=== PATIENT | female | born 1925 | race Caucasian/White ===

== ENCOUNTER 2016-04-08 14:54 | Emergency (ER) | payer MEDICARE ==
[~2016-04-08] VITALS: Ht 157.5 cm; Wt 50.0 kg
[~2016-04-08 14:54] MED LIST: BUME0.5T PO; COLA100C3 PO; COMMODE 3-IN-11 MIS; COUM6TAB PO; EVIS60TA PO; FAMO20TA2 PO; HYDR-3516 PO; IPRASOL NEB; LACT10SO PO; LACTCHW3 CHEW; LEVO50TA4 PO; METO25TA3 PO; MILKSUS PO; MORP1TAB24 PO; ONDA4TAB7 PO; POLY17S PO; PRED1 PO; RANI150T PO; SPIRCAP INH; ULTR50TA5 PO
[2016-04-08 15:10] VITALS: BP 138/66; PULSE 66; RESP 18; TEMP 98.8; O2SAT 93
[2016-04-08 15:20] VITALS: BP 138/66; PULSE 79; RESP 18; TEMP 98.8; O2SAT 94; O2SAT 96
--- NOTE | 2016-04-08 15:24 | PD ---
HPI Chief Complaint: vomiting Time Seen by Provider: 15:19 Travel History International Travel<30 days: No Contact w/Intl Traveler<30days: No History of Present Illness HPI 89-year-old female presents to the emergency department for evaluation of vomiting. Patient was admitted on March 31, 2016 for intractable pain from rib fractures. She fell approximately 2 weeks and had ended up with posterior right rib fracture. She came in for intractable pain and was admitted. Patient still reports pain, states she started vomiting yesterday. She states she was able to keep this down, but has vomited 3 times today. Patient has a history of breast cancer, polymyalgia rheumatica, CHF, chronic kidney disease, atrial fibrillation, mitral valve prolapse, COPD, hypothyroidism, DVT. Patient states she had abdominal pain yesterday, but this has completely resolved. She does report constipation, that she had a bowel movement this morning. She denies any blood in her stool. Patient complains of right lower back pain from rib fracture, but denies any new pain. No fevers. PFSH Past Medical History Hx Anticoagulant Therapy: Yes Arthritis: Yes Asthma: No Atrial Fibrillation: Yes Autoimmune Disease: No Anxiety: No Depression: No Heart Rhythm Problems: Yes (Afib) Cancer: Yes (BREAST) Cardiovascular Problems: Yes (RI/ HTN; mitral valve prolapse; congenital heart disease) High Cholesterol: No Chemotherapy: No Chest Pain: Yes (intermittent) Congestive Heart Failure: Yes COPD: Yes Cerebrovascular Accident: No Diabetes: No Endocrine: Yes Gastrointestinal Disorders: Yes (ACID REFLUX) GERD: Yes Genitourinary: No Hepatitis: No Hiatal Hernia: No Hypertension: Yes Immune Disorder: Yes (POLYMYALGIA RHEUMATICA) Kidney Stones: Yes Musculoskeletal: Yes (ARTHRITIS) Neurologic: No Psychiatric: No Reproductive: Yes (hysterectomy) Respiratory: Yes (COPD) Immunizations Current: Yes Migraines: No Radiation Therapy: No Renal Failure: Yes (CRF) Seizures: No Sickle Cell Disease: No Sleep Apnea: No Thyroid Disease: Yes Ulcer: No PNEUMOCCOCAL Vaccine (Year): 1 : 6 Para: 5 Miscarriage: 1 Past Surgical History Abdominal Surgery: Yes (Exp Lap; recent hernia repair and colon resection) AICD: No Arteriovenous Shunt: No Cardiac Surgery: No Ear Surgery: No Endocrine Surgery: No Eye Surgery: Yes (bilateral cataracts) Genitourinary Surgery: Yes (BLADDER SLING; cystocele/Rectocele repair) Gynecologic Surgery: Yes (HYSTERECTOMY) Hysterectomy: Yes Insulin Pump: No Joint Replacement: No Mastectomy: Yes (RIGHT SIDE) Oral Surgery: No Pacemaker: No Thoracic Surgery: Yes (RIGHT MASTECTOMY) Other Surgery: Yes (CYSTOCELE, RECTOCELE) Social History Alcohol Use: Yes (WINE ONCE PER MONTH) Tobacco Use: No Substance Use: No Allergies-Medications (Allergen,Severity, Reaction): Coded Allergies: Codeine (Verified Allergy, Severe, UNK, 03/28/16) Penicillin (Verified Allergy, Severe, Unknown, 03/28/16) Sulfa (Verified Allergy, Severe, HYPOTENSION, 03/28/16) Shellfish (Unverified Allergy, Intermediate, NAUSEA VOMITING, 03/28/16) Uncoded Allergies: BANANAS (Allergy, Severe, VOMITTING, 10/30/15) Reported Meds & Prescriptions Reported Meds & Active Scripts Active Ondansetron Odt 4 Mg Tab 4 Mg SL Q6HR PRN Morphine ER (Morphine Sulfate) 15 Mg Tab 15 Mg PO Q12HR Coumadin (Warfarin) 6 Mg Tab 6 Mg PO DAILY@1600 Lactulose Liq (Lactulose) 10 Gm/15 Ml Soln 30 Ml PO DAILY PRN Hydrocodone-Acetaminophen 5-325 mg Tab 1 Tab PO Q4H PRN Milk of Magnesia Liq (Magnesium Hydroxide) 400 Mg/5 Ml Susp 30 Ml PO DAILY PRN 1 Days Ondansetron Odt 4 Mg Tab 4 Mg PO Q6H PRN 1 Days Duoneb (Ipratropium-Albuterol Neb) 0.5-2.5 Mg/3 Ml Neb 1 Ampule NEB Q4HR NEB PRN 1 Days Reported Miralax Powder (Polyethylene Glycol 3350 Powder) 17 Gm Powd 17 Gm PO HS Mix and dissolve one measuring cap-ful (17 grams) in water or juice. Diff-Stat (Probiotic Product) 1 Cap Cap 1 Cap PO DAILY Ranitidine (Ranitidine HCl) 150 Mg Tab 150 Mg PO DAILY Colace (Docusate Sodium) 100 Mg Cap 100 Mg PO BID Levothyroxine (Levothyroxine Sodium) 50 Mcg Tab 50 Mcg PO DAILY Spiriva Handihaler (Tiotropium Inh) 18 Mcg Cap 2 Puff INH DAILY 1 capsule = 18 mcg Evista (Raloxifene HCl) 60 Mg Tab 60 Mg PO DAILY Bumetanide 0.5 Mg Tab 0.5 Mg PO DAILY Metoprolol Tartrate 25 Mg Tab 25 Mg PO BID Prednisone 1 Mg Tab 3 Mg PO DAILY Review of Systems Except as stated in HPI: all other systems reviewed are Neg Physical Exam Narrative GENERAL: Well-developed well-nourished elderly female patient, afebrile. SKIN: Warm and dry. HEAD: Normocephalic. Atraumatic. EYES: No scleral icterus. No injection or drainage. NECK: Supple, trachea midline. No JVD or lymphadenopathy. CARDIOVASCULAR: Regular rate and rhythm without murmurs, gallops, or rubs. RESPIRATORY: Breath sounds equal bilaterally. No accessory muscle use. Lungs sounds clear to auscultation. GASTROINTESTINAL: Abdomen soft, non-tender, nondistended. No abdominal pain to palpation. MUSCULOSKELETAL: No cyanosis, or edema. BACK: Nontender without obvious deformity. No CVA tenderness. Patient has tenderness over the right thoracic back due to rib fractures. Data Data Last Documented VS Vital Signs Date Time Temp Pulse Resp B/P Pulse Ox O2 Delivery O2 Flow Rate FiO2 04/08/16 15:20 94 Nasal Cannula 2 04/08/16 15:20 98.8 79 18 138/66 Orders Complete Blood Count With Diff (04/08/16 15:17) Comprehensive Metabolic Panel (04/08/16 15:17) Urinalysis - C+S If Indicated (04/08/16 15:17) Lipase (04/08/16 15:17) Iv Access Insert/Monitor (04/08/16 15:17) Ecg Monitoring (04/08/16 15:17) Oximetry (04/08/16 15:17) Ondansetron Inj (Zofran Inj) (04/08/16 15:30) Sodium Chloride 0.9% Flush (Ns Flush) (04/08/16 15:30) Electrocardiogram (04/08/16 ) Ondansetron Odt (Zofran Odt) (04/08/16 16:45) Labs Laboratory Tests Test 04/08/16 04/08/16 15:28 16:40 White Blood Count 6.8 TH/MM3 Red Blood Count 4.31 MIL/MM3 Hemoglobin 13.6 GM/DL Hematocrit 40.6 % Mean Corpuscular Volume 94.3 FL Mean Corpuscular Hemoglobin 31.5 PG Mean Corpuscular Hemoglobin 33.4 % Concent Red Cell Distribution Width 15.8 % Platelet Count 253 TH/MM3 Mean Platelet Volume 7.8 FL Neutrophils (%) (Auto) 74.7 % Lymphocytes (%) (Auto) 10.2 % Monocytes (%) (Auto) 13.2 % Eosinophils (%) (Auto) 1.5 % Basophils (%) (Auto) 0.4 % Neutrophils # (Auto) 5.1 TH/MM3 Lymphocytes # (Auto) 0.7 TH/MM3 Monocytes # (Auto) 0.9 TH/MM3 Eosinophils # (Auto) 0.1 TH/MM3 Basophils # (Auto) 0.0 TH/MM3 CBC Comment DIFF FINAL Differential Comment Sodium Level 133 MEQ/L Potassium Level 4.5 MEQ/L Chloride Level 92 MEQ/L Carbon Dioxide Level 32.3 MEQ/L Anion Gap 9 MEQ/L Blood Urea Nitrogen 32 MG/DL Creatinine 1.66 MG/DL Estimat Glomerular Filtration 29 ML/MIN Rate Random Glucose 99 MG/DL Calcium Level 8.9 MG/DL Total Bilirubin 0.9 MG/DL Aspartate Amino Transf 27 U/L (AST/SGOT) Alanine Aminotransferase 19 U/L (ALT/SGPT) Alkaline Phosphatase 117 U/L Total Protein 7.5 GM/DL Albumin 3.6 GM/DL Lipase 124 U/L Urine Color YELLOW Urine Turbidity CLEAR Urine pH 7.0 Urine Specific [place] 1.010 Urine Protein NEG mg/dL Urine Glucose (UA) NEG mg/dL Urine Ketones NEG mg/dL Urine Occult Blood NEG Urine Nitrite NEG Urine Bilirubin NEG Urine Urobilinogen 2.0 MG/DL Urine Leukocyte Esterase NEG Urine RBC LESS THAN 1 /hpf Urine WBC LESS THAN 1 /hpf Urine Squamous Epithelial <1 /hpf Cells Microscopic Urinalysis Comment CULT NOT INDICATED MDM Medical Decision Making Medical Screen Exam Complete: Yes Emergency Medical Condition: Yes Medical Record Reviewed: Yes Differential Diagnosis Nausea/vomiting versus election abnormality versus gastroenteritis versus ACS versus dehydration versus acute kidney injury Narrative Course 89-year-old female presents to the emergency department via [employer] [facility] for evaluation of vomiting since yesterday. Patient was just discharged from the hospital on April 05. CBC, CMP, lipase, EKG are ordered and pending. Patient is given Zofran 4 mg IV. CBC shows no acute abnormalities. CMP shows slightly low sodium at 133, BUN and creatinine of 32/1.66. Lipase is 124. UA is negative for infection. EKG shows atrial fibrillation, heart rate 75, unchanged since previous EKG. My attending physician, Dr. Dupree, is aware of findings and plan. Patient is given PO challenge and is able to tolerate germán crackers and water without difficulty. The patient is stable to be discharged back to [facility] with a prescription for Zofran. I spoke to the family he was concerned about the care she is receiving a [facility]. They state they will follow up with her physician regarding this. The patient verbalizes understanding. They're to return for any acute worsening of symptoms. Diagnosis Primary Impression: Nausea & vomiting Qualified Code: R11.2 - Non-intractable vomiting with nausea, unspecified vomiting type Referrals: Primary Care Physician call for appointment Patient Instructions: Acute Nausea and Vomiting (ED), General Instructions Additional Instructions: [place] diet. Take ondansetron as directed as needed for nausea/vomiting. Take this before your pain medication to prevent vomiting. Follow-up with your primary care physician. Return to the emergency department for any acute worsening of symptoms. Med/Other Pt SpecificInfo: Prescription(s) given Scripts Ondansetron Odt 4 Mg Tab4 Mg SL Q6HR PRN (Nausea/Vomiting) #20 TAB Ref 0 Prov:Elizabeth Hart 04/08/16 Disposition: 01 DISCHARGE HOME Elizabeth Hart Apr 08, 2016 15:24
[2016-04-08] MEDS ORDERED: ONDANSETRON HCL 4 MG/2 ML VIAL IVP ONE (15:30)
[2016-04-08] MEDS ORDERED: SODIUM CHLORIDE 0.9% FLUSH 5 ML FLUSH IVF PRN (15:30)
[2016-04-08 15:47] LABS: AUTOMATED NEUTROPHIL # 5.1 TH/MM3 (1.8-7.7); BASOPHIL % 0.4 % (0.0-2.0); EOSINOPHIL # 0.1 TH/MM3 (0-0.4); EOSINOPHIL % 1.5 % (0.0-4.0); HEMATOCRIT 40.6 % (35.0-46.0); HEMO FLAGS DIFF FINAL; LYMPH % 10.2 % (9.0-44.0); LYMPHOCYTE # 0.7 TH/MM3 (1.0-4.8); MEAN CELL VOLUME 94.3 FL (80.0-100.0); MEAN CORPUSCULAR HEMOGLOBIN 31.5 PG (27.0-34.0); MEAN CORPUSCULAR HGB CONC 33.4 % (32.0-36.0); MONO % 13.2 % (0.0-8.0); NEUT % 74.7 % (16.0-70.0); PLATELET COUNT 253 TH/MM3 (150-450); RED BLOOD COUNT 4.31 MIL/MM3 (4.00-5.30); RED CELL DISTRIBUTION WIDTH 15.8 % (11.6-17.2); WHITE BLOOD COUNT 6.8 TH/MM3 (4.0-11.0)
[2016-04-08 16:09] LABS: ALT (GPT) 19 U/L (10-53); ANION GAP 9 MEQ/L (5-15); AST (GOT) 27 U/L (15-37); BICARBONATE 32.3 MEQ/L (21.0-32.0); BLOOD UREA NITROGEN 32 MG/DL (7-18); CHLORIDE 92 MEQ/L (98-107); GLOMERULAR FILTRATION RATE 29 ML/MIN (>89); POTASSIUM 4.5 MEQ/L (3.5-5.1); SODIUM (NA) 133 MEQ/L (136-145)
[2016-04-08 16:11] LABS: ALKALINE PHOSPHATASE 117 U/L (45-117); TOTAL BILIRUBIN ADULT 0.9 MG/DL (0.2-1.0)
[2016-04-08] MEDS ORDERED: MIRA33504 PO (16:37)
[2016-04-08] MEDS ORDERED: DIFFCHW PO (16:37)
[2016-04-08] MEDS ORDERED: ONDANSETRON ODT 4 MG TAB PO ONE (16:45)
[2016-04-08 17:14] LABS: BLOOD, URINE NEG (NEG); COMMENT (UR) CULT NOT INDICATED; CULTURE IF INDICATED CULT NOT INDICATED; GLUCOSE,URINE NEG (NEG); KETONE, URINE NEG (NEG); NITRITE,URINE NEG (NEG); SQUAMOUS EPITHELIAL CELL URINE <1 /hpf (0-5); URINE COLOR YELLOW (YELLW/STRAW)
[2016-04-08] MEDS ORDERED: ONDA4TAB7 SL (18:11)
[2016-04-08 18:53] VITALS: BP 104/58; PULSE 75; RESP 16; O2SAT 95
[2016-04-08 21:09] VITALS: BP 120/78
--- NOTE | 2016-04-09 23:58 | EKG ---
Date Performed: 04/08/2016 Time Performed: 15:35:40 PTAGE: 89 years EKG: ATRIAL FIBRILLATION MARKED LEFT AXIS DEVIATION ANTEROSEPTAL MYOCARDIAL INFARCTION ABNORMAL ECG PREVIOUS TRACING : 04/01/2016 22.20 DOCTOR: Ilda Patino Interpretating Date/Time 04/09/2016 23:49:58
[2016-05-07] MEDS ORDERED: VENTAER INH (15:05)
[2016-06-27] MEDS ORDERED: RALO1TAB PO (15:53)
[2016-06-27] MEDS ORDERED: ERGO1CAP30 PO (15:53)
[2016-06-27] MEDS ORDERED: COUM6TAB PO (15:53)
[2016-06-27] MEDS ORDERED: LEVO50TA4 PO (15:53)
[2016-06-27] MEDS ORDERED: BUME1TAB PO (15:53)
[2016-06-27] MEDS ORDERED: DOCU1CAP39 PO (15:53)
[2016-06-27] MEDS ORDERED: CYCL1TAB29 PO (15:53)
[2016-06-27] MEDS ORDERED: VITA2000 PO (15:53)
[2016-06-27] MEDS ORDERED: CALCTAB19 PO (15:53)
[2016-06-27] MEDS ORDERED: PRED1 PO (15:53)
[2016-06-27] MEDS ORDERED: SPIRCAP INH (15:53)
[2016-06-27] MEDS ORDERED: NORC5TAB PO (15:53)
[2016-06-27] MEDS ORDERED: METO25TA6 PO (15:53)
== END 2016-04-08 21:30 | disposition home or self-care (01) ==
LOC: NEPE 14:54
DX: R11.2 Nausea with vomiting, unspecified (principal); I48.91 Unspecified atrial fibrillation; M19.90 Unspecified osteoarthritis, unspecified site; J44.9 Chronic obstructive pulmonary disease, unspecified; I12.9 Hypertensive chronic kidney disease with stage 1 through stage 4 chronic kidney disease, or unspecified chronic kidney disease; E07.9 Disorder of thyroid, unspecified; I50.9 Heart failure, unspecified; K21.9 Gastro-esophageal reflux disease without esophagitis; Z79.01 Long term (current) use of anticoagulants
CPT/HCPCS: 80053; 81001; 83690; 85025; 93005

== ENCOUNTER → 2016-06-05 | Outpatient (CLI) | payer MEDICARE ==
[~2016-06-05] MED LIST changes: +BUME1TAB PO; +CALCTAB19 PO; -COMMODE 3-IN-11 MIS; +CYCL1TAB29 PO; +DIFFCHW PO; +DOCU1CAP39 PO; +ERGO1CAP30 PO; -FAMO20TA2 PO; -HYDR-3516 PO; -LACTCHW3 CHEW; +METO25TA6 PO; +MIRA33504 PO; -MORP1TAB24 PO; +NORC5TAB PO; -ONDA4TAB7 PO; +PLATMIS3; -POLY17S PO; +RALO1TAB PO; -ULTR50TA5 PO; +VENTAER INH; +VITA2000 PO; +WALKER/ADULT/FO1 MIS; +WARF-58 PO; +WHEEMIS3
[2016-06-05 16:55] LABS: AUTOMATED NEUTROPHIL # 6.9 TH/MM3 (1.8-7.7); BASOPHIL % 0.3 % (0.0-2.0); EOSINOPHIL # 0.1 TH/MM3 (0-0.4); EOSINOPHIL % 1.3 % (0.0-4.0); HEMATOCRIT 37.5 % (35.0-46.0); HEMO FLAGS DIFF FINAL; LYMPH % 6.1 % (9.0-44.0); LYMPHOCYTE # 0.5 TH/MM3 (1.0-4.8); MEAN CELL VOLUME 94.3 FL (80.0-100.0); MEAN CORPUSCULAR HGB CONC 33.9 % (32.0-36.0); MONO % 8.1 % (0.0-8.0); NEUT % 84.2 % (16.0-70.0); PLATELET COUNT 191 TH/MM3 (150-450); RED BLOOD COUNT 3.98 MIL/MM3 (4.00-5.30); RED CELL DISTRIBUTION WIDTH 16.7 % (11.6-17.2); WHITE BLOOD COUNT 8.2 TH/MM3 (4.0-11.0)
[2016-06-05 17:18] LABS: ANION GAP 8 MEQ/L (5-15); AST (GOT) 19 U/L (15-37); BICARBONATE 27.7 MEQ/L (21.0-32.0); BLOOD UREA NITROGEN 38 MG/DL (7-18); CHLORIDE 102 MEQ/L (98-107); GLOMERULAR FILTRATION RATE 32 ML/MIN (>89); POTASSIUM 3.8 MEQ/L (3.5-5.1); SODIUM (NA) 138 MEQ/L (136-145)
[2016-06-05 17:21] LABS: ALKALINE PHOSPHATASE 81 U/L (45-117); ALT (GPT) 20 U/L (10-53); TOTAL BILIRUBIN ADULT 0.6 MG/DL (0.2-1.0)
[2016-06-05 17:53] LABS: WESTERGREN SEDIMENTATION RATE 9 mm/hr (0-30)
== END ==
LOC: PLAB 11:39
PROVIDERS: ATTEND Allergy & Immunology
DX: M35.3 Polymyalgia rheumatica (principal)
CPT/HCPCS: 36415; 80053; 85025; 85652; 86140

== ENCOUNTER 2016-06-11 22:07 | Inpatient (IN) | payer MEDICARE ==
[~2016-06-11] VITALS: Ht 157.5 cm; Wt 54.7 kg
[~2016-06-11 22:07] MED LIST changes: -BUME1TAB PO; -CALCTAB19 PO; -CYCL1TAB29 PO; -DOCU1CAP39 PO; -ERGO1CAP30 PO; -METO25TA6 PO; -NORC5TAB PO; -PLATMIS3; -RALO1TAB PO; -VITA2000 PO; -WALKER/ADULT/FO1 MIS; -WARF-58 PO; -WHEEMIS3
[2016-06-11 22:15] VITALS: BP 140/72; PULSE 74; RESP 16; TEMP 98.5; O2SAT 98
[2016-06-11 22:22] VITALS: RESP 16
[2016-06-11] MEDS ORDERED: ONDANSETRON HCL 4 MG/2 ML VIAL IVP ONE (22:30)
[2016-06-11] MEDS ORDERED: MORPHINE SULFATE 4 MG/ML INJ IV PUSH ONE (22:30)
[2016-06-11] MEDS ORDERED: SODIUM CHLORIDE 0.9% FLUSH 5 ML FLUSH IVF PRN (22:30)
--- NOTE | 2016-06-11 22:35 | PD ---
HPI Chief Complaint: Fall Time Seen by Provider: 22:20 Travel History International Travel<30 days: No Contact w/Intl Traveler<30days: No Traveled to known affect area: No History of Present Illness HPI 89-year-old female with multiple medical issues, A. fib currently on Coumadin, presents to the ER today because she states that she was trying to get out of her slacks today when she lost balance and fell onto her left side, complains currently of left hip pain and left wrist pain. She denies any head injury or loss of consciousness. She denies any other issues or injuries. Pain is currently an 8 out of 10, worse with movements. Modifying Factors: None Associated Signs & Symptoms: Fall, left hip injury, left wrist injury Risk Factors: None PFSH Past Medical History Hx Anticoagulant Therapy: Yes (COUMADIN) Arthritis: Yes Asthma: No Atrial Fibrillation: Yes Autoimmune Disease: No Anxiety: No Depression: No Heart Rhythm Problems: Yes (Afib) Cancer: Yes (BREAST) Cardiovascular Problems: Yes (PREVIOUS AR) High Cholesterol: No Chemotherapy: No Chest Pain: Yes (intermittent) Congestive Heart Failure: Yes COPD: Yes Cerebrovascular Accident: No Diabetes: No Endocrine: Yes Gastrointestinal Disorders: Yes (ACID REFLUX) GERD: Yes Genitourinary: No Hepatitis: No Hiatal Hernia: No Hypertension: Yes Immune Disorder: Yes (POLYMYALGIA RHEUMATICA) Kidney Stones: Yes Medical other: Yes (BILATERAL LEG EDEMA) Musculoskeletal: Yes (ARTHRITIS) Neurologic: No Psychiatric: No Reproductive: Yes (hysterectomy) Respiratory: Yes (COPD) Immunizations Current: Yes Migraines: No Radiation Therapy: No Renal Failure: Yes (CRF) Seizures: No Sickle Cell Disease: No Sleep Apnea: No Thyroid Disease: Yes Ulcer: No Influenza Vaccination: Yes PNEUMOCCOCAL Vaccine (Year): 1 ?: Not : 6 Para: 5 Miscarriage: 1 Past Surgical History Abdominal Surgery: Yes (Exp Lap; recent hernia repair and colon resection) AICD: No Arteriovenous Shunt: No Cardiac Surgery: No Ear Surgery: No Endocrine Surgery: No Eye Surgery: Yes (bilateral cataracts) Genitourinary Surgery: Yes (BLADDER SLING; cystocele/Rectocele repair) Gynecologic Surgery: Yes (HYSTERECTOMY) Hysterectomy: Yes Insulin Pump: No Joint Replacement: No Mastectomy: Yes (RIGHT SIDE) Oral Surgery: No Pacemaker: No Thoracic Surgery: Yes (RIGHT MASTECTOMY) Other Surgery: Yes (CYSTOCELE, RECTOCELE) Social History Alcohol Use: No Tobacco Use: No Substance Use: No Allergies-Medications (Allergen,Severity, Reaction): Coded Allergies: Codeine (Verified Allergy, Severe, UNK, 06/11/16) Penicillin (Verified Allergy, Severe, Unknown, 06/11/16) Sulfa (Verified Allergy, Severe, HYPOTENSION, 06/11/16) Shellfish (Unverified Allergy, Intermediate, NAUSEA VOMITING, 06/11/16) Uncoded Allergies: BANANAS (Allergy, Severe, VOMITTING, 10/30/15) Reported Meds & Prescriptions Reported Meds & Active Scripts Active Coumadin (Warfarin) 6 Mg Tab 6 Mg PO DAILY@1600 Reported Metoprolol Succinate ER 24 HR (Metoprolol Succinate) 25 Mg Tab 12.5 Mg PO BID Raloxifene (Raloxifene HCl) 60 Mg Tab 60 Mg PO DAILY Spiriva Handihaler (Tiotropium Inh) 18 Mcg Cap 18 Mcg INH DAILY 1 capsule = 18 mcg Warfarin 3 Mg Tab 3 Mg PO DAILY Ranitidine (Ranitidine HCl) 150 Mg Tab 150 Mg PO DAILY Levothyroxine (Levothyroxine Sodium) 50 Mcg Tab 50 Mcg PO DAILY Bumetanide 0.5 Mg Tab 0.5 Mg PO DAILY Prednisone 1 Mg Tab 3 Mg PO DAILY Review of Systems Except as stated in HPI: all other systems reviewed are Neg Physical Exam Narrative GENERAL: Well-nourished, well-developed elderly white female patient in mild distress. Awake and oriented 3. SKIN: Warm and dry. HEAD: Normocephalic. EYES: No scleral icterus. No injection or drainage. NECK: Supple, trachea midline. CARDIOVASCULAR: Regular rate and rhythm without murmurs, gallops, or rubs. RESPIRATORY: Breath sounds equal bilaterally. No accessory muscle use. GASTROINTESTINAL: Abdomen soft, non-tender, nondistended. Pelvis: Stable, tender to palpation in the left hip area, decreased range of motion secondary to pain. Mildly tender in the femur area as well. Neurovascularly intact below the injury. MUSCULOSKELETAL: No cyanosis, or edema. BACK: Nontender without obvious deformity. No CVA tenderness. EXTREMITIES: No clubbing, cyanosis, or edema. No joint tenderness, effusion, or edema noted. Tender to palpation in the left wrist with notable ecchymosis. Decreased range of motion secondary to pain. Data Data Last Documented VS Vital Signs Date Time Temp Pulse Resp B/P Pulse Ox O2 Delivery O2 Flow Rate FiO2 06/11/16 22:22 16 06/11/16 22:17 Room Air 06/11/16 22:15 98.5 74 140/72 98 Orders Electrocardiogram (06/11/16 22:20) Complete Blood Count With Diff (06/11/16 22:20) Comprehensive Metabolic Panel (06/11/16 22:20) Prothrombin Time / Inr (Pt) (06/11/16 22:20) Act Partial Throm Time (Ptt) (06/11/16 22:20) Urinalysis - C+S If Indicated (06/11/16 22:20) Chest, Single Ap (06/11/16 22:20) Hip, Uni(Ap&Lat) W Ap Pelvis (06/11/16 22:20) Iv Access Insert/Monitor (06/11/16 22:20) Oximetry (06/11/16 22:20) Ecg Monitoring (06/11/16 22:20) Morphine Inj (Morphine Inj) (06/11/16 22:30) Ondansetron Inj (Zofran Inj) (06/11/16 22:30) Sodium Chloride 0.9% Flush (Ns Flush) (06/11/16 22:30) Wrist, Complete ([id number]) (06/11/16 22:20) Hydromorphone Pf Inj (Dilaudid Pf Inj) (06/11/16 22:45) Femur (Ap & Lat/2vws) (06/11/16 22:49) Consult Orthopedic (06/11/16 ) Labs Laboratory Tests Test 06/11/16 22:30 White Blood Count 5.6 TH/MM3 Red Blood Count 3.85 MIL/MM3 Hemoglobin 12.2 GM/DL Hematocrit 35.7 % Mean Corpuscular Volume 92.8 FL Mean Corpuscular Hemoglobin 31.5 PG Mean Corpuscular Hemoglobin 34.0 % Concent Red Cell Distribution Width 16.3 % Platelet Count 174 TH/MM3 Mean Platelet Volume 8.5 FL Neutrophils (%) (Auto) 66.5 % Lymphocytes (%) (Auto) 17.7 % Monocytes (%) (Auto) 13.0 % Eosinophils (%) (Auto) 2.1 % Basophils (%) (Auto) 0.7 % Neutrophils # (Auto) 3.7 TH/MM3 Lymphocytes # (Auto) 1.0 TH/MM3 Monocytes # (Auto) 0.7 TH/MM3 Eosinophils # (Auto) 0.1 TH/MM3 Basophils # (Auto) 0.0 TH/MM3 CBC Comment DIFF FINAL Differential Comment Prothrombin Time 21.4 SEC Prothromb Time International 1.9 RATIO Ratio Activated Partial 31.3 SEC Thromboplast Time Sodium Level 141 MEQ/L Potassium Level 3.9 MEQ/L Chloride Level 105 MEQ/L Carbon Dioxide Level 25.4 MEQ/L Anion Gap 11 MEQ/L Blood Urea Nitrogen 39 MG/DL Creatinine 1.39 MG/DL Estimat Glomerular Filtration 36 ML/MIN Rate Random Glucose 103 MG/DL Calcium Level 8.9 MG/DL Total Bilirubin 0.5 MG/DL Aspartate Amino Transf 24 U/L (AST/SGOT) Alanine Aminotransferase 22 U/L (ALT/SGPT) Alkaline Phosphatase 72 U/L Total Protein 6.8 GM/DL Albumin 3.4 GM/DL MDM Medical Decision Making Medical Screen Exam Complete: Yes Emergency Medical Condition: Yes Medical Record Reviewed: Yes Interpretation(s) Last 24 hours Impressions Wrist X-Ray 06/11/162219 Signed Impressions: Service Date/Time: Saturday, June 11, 2016 22:41 - CONCLUSION: 1. Minimally displaced, horizontal fracture through the distal radial metaphysis with probable intra-articular extension. 2. 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 Jeferson James MD Chest X-Ray 06/11/162219 Signed Impressions: Service Date/Time: Saturday, June 11, 2016 22:47 - CONCLUSION: 1. Prominent heart. 2. Interstitial prominence in both hemithoraces actually appears somewhat chronic and may represent some degree of fibrosis. There also appears to be bilateral calcific pleural plaquing. 3. No confluent infiltrate Jeferson James MD Laboratory Tests Test 06/11/16 22:30 Red Blood Count 3.85 MIL/MM3 (4.00-5.30) Monocytes (%) (Auto) 13.0 % (0.0-8.0) Prothrombin Time 21.4 SEC (9.8-11.6) Activated Partial 31.3 SEC Thromboplast Time (24.3-30.1) Blood Urea Nitrogen 39 MG/DL (7-18) Creatinine 1.39 MG/DL (0.50-1.00) Estimat Glomerular Filtration 36 ML/MIN (>89) Rate Differential Diagnosis Left hip and wrist injury, fallrule out fractures versus contusions Narrative Course Patient was given pain medications IV and Zofran in the ER. X-ray shows left hip and wrist fractures. Case was discussed with Dr. Zamora who states he would like the patient to be medically admitted and nothing by mouth for tomorrow. Case is then discussed with Dr. Eddy for admission. Diagnosis Primary Impression: Closed left hip fracture Additional Impression: Left wrist fracture Admitting Information Admitting Physician Requests: Admit Radha Armando MD Jun 11, 2016 22:35
[2016-06-11] MEDS ORDERED: SPIRCAP INH (22:43)
[2016-06-11] MEDS ORDERED: WARF-58 PO (22:43)
[2016-06-11] MEDS ORDERED: METO25TA6 PO (22:43)
[2016-06-11] MEDS ORDERED: RALO1TAB PO (22:43)
[2016-06-11] MEDS ORDERED: HYDROmorphone HCL PF 1 MG/ML VIAL IV PUSH ONE (22:45)
[2016-06-11 22:53] LABS: AUTOMATED NEUTROPHIL # 3.7 TH/MM3 (1.8-7.7); BASOPHIL % 0.7 % (0.0-2.0); EOSINOPHIL # 0.1 TH/MM3 (0-0.4); EOSINOPHIL % 2.1 % (0.0-4.0); HEMATOCRIT 35.7 % (35.0-46.0); HEMO FLAGS DIFF FINAL; LYMPH % 17.7 % (9.0-44.0); MEAN CELL VOLUME 92.8 FL (80.0-100.0); MEAN CORPUSCULAR HEMOGLOBIN 31.5 PG (27.0-34.0); NEUT % 66.5 % (16.0-70.0); PLATELET COUNT 174 TH/MM3 (150-450); RED BLOOD COUNT 3.85 MIL/MM3 (4.00-5.30); RED CELL DISTRIBUTION WIDTH 16.3 % (11.6-17.2); WHITE BLOOD COUNT 5.6 TH/MM3 (4.0-11.0)
[2016-06-11 23:03] LABS: APTT (PATIENT) 31.3 SEC (24.3-30.1); INTERNATIONAL NORMALIZED RATIO 1.9 RATIO; PROTHROMBIN TIME - PATIENT 21.4 SEC (9.8-11.6)
[2016-06-11 23:20] LABS: ANION GAP 11 MEQ/L (5-15); AST (GOT) 24 U/L (15-37); BICARBONATE 25.4 MEQ/L (21.0-32.0); BLOOD UREA NITROGEN 39 MG/DL (7-18); CHLORIDE 105 MEQ/L (98-107); GLOMERULAR FILTRATION RATE 36 ML/MIN (>89); POTASSIUM 3.9 MEQ/L (3.5-5.1); SODIUM (NA) 141 MEQ/L (136-145)
[2016-06-11 23:22] LABS: ALKALINE PHOSPHATASE 72 U/L (45-117); ALT (GPT) 22 U/L (10-53); TOTAL BILIRUBIN ADULT 0.5 MG/DL (0.2-1.0)
--- NOTE | 2016-06-11 23:28 | RADRPT ---
EXAM DATE/TIME: 06/11/2016 22:47 [facility] COMPARISON: CHEST SINGLE AP, March 31, 2016, 2:39. INDICATIONS : Evaluate for pneumonia, pneumothorax, or communicable disease. Pre-op left hip surgery. MEDICAL HISTORY : Myocardial infarction. Chronic obstructive pulmonary disease. Congestive heart failure. AFIB SURGICAL HISTORY : Mastectomy, right. ENCOUNTER: Initial ACUITY: 1 day PAIN SCORE: 0/10 LOCATION: Bilateral chest FINDINGS: A single view of the chest demonstrates interval worsening in the radiographic appearance of the ches t. Interstitial prominence actually appears chronic probably representing some degree of fibrosis. Th ere are bilateral pleural plaques. Surgical clips in the right axillary region are characteristic of prior teresa dissection. Patient appears to have had a right mastectomy. Heart size is prominent. CONCLUSION: 1. Prominent heart. 2. Interstitial prominence in both hemithoraces actually appears somewhat chronic and may represent s ome degree of fibrosis. There also appears to be bilateral calcific pleural plaquing. 3. No confluent infiltrate Jeferson James MD on June 11, 2016 at 23:23 Board Certified Radiologist. This report was verified electronically.
--- NOTE | 2016-06-11 23:33 | RADRPT ---
EXAM DATE/TIME: 06/11/2016 22:41 [facility] COMPARISON: No previous studies available for comparison. INDICATIONS : Left wrist pain with swelling post fall. MEDICAL HISTORY : Myocardial infarction. Chronic obstructive pulmonary disease. Congestive heart failure. AFIB SURGICAL HISTORY : Mastectomy, right. ENCOUNTER: Initial ACUITY: 1 day PAIN SCORE: 8/10 LOCATION: Left upper extremity FINDINGS: Three view examination of the left wrist demonstrates a horizontal fracture through the distal radial metaphysis with minimal displacement. There appears to be intra-articular extension as well. Degener ative osteoarthritic changes at the first CMC joint. Dense atherosclerotic calcification of the regio nal vasculature. CONCLUSION: 1. Minimally displaced, horizontal fracture through the distal radial metaphysis with probable intra- articular extension. 2. 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 Jeferson James MD on June 11, 2016 at 23:28 Board Certified Radiologist. This report was verified electronically.
--- NOTE | 2016-06-11 23:44 | RADRPT ---
EXAM DATE/TIME: 06/11/2016 22:45 [facility] COMPARISON: No previous studies available for comparison. INDICATIONS : Left hip pain post fall. MEDICAL HISTORY : Myocardial infarction. Chronic obstructive pulmonary disease. Congestive heart failure. AFIB SURGICAL HISTORY : Mastectomy, right. ENCOUNTER: Initial ACUITY: 1 day PAIN SCORE: 9/10 LOCATION: Left pelvis FINDINGS: Examination of the left hip was performed with AP Pelvis. Due to patient positioning, the hip is poor ly profiled. There is definitely deformity and I suspect an intratrochanteric fracture. Exact positio n of the right is difficult to determine, however. Osseous structures are otherwise intact. Degenerat anirudh changes in the lower lumbar spine. Surgical clips in the mid pelvis. Vascular stent seen overlyin g the mid femur. CONCLUSION: Definite fracture deformity of the left hip which I believe is intratrochanteric.. Jeferson James MD on June 11, 2016 at 23:41 Board Certified Radiologist. This report was verified electronically.
--- NOTE | 2016-06-11 23:46 | RADRPT ---
EXAM DATE/TIME: 06/11/2016 22:57 [facility] COMPARISON: No previous studies available for comparison. INDICATIONS : Left proximal femur pain post fall. MEDICAL HISTORY : Myocardial infarction. Chronic obstructive pulmonary disease. Congestive heart failure. AFIB SURGICAL HISTORY : Mastectomy, right. ENCOUNTER: Initial ACUITY: 1 day PAIN SCORE: 9/10 LOCATION: Left proximal femur FINDINGS: Two view examination of the left femur demonstrates intratrochanteric fracture of the left hip. Femor al diaphysis is intact. Atherosclerotic calcification the regional vasculature with a stent in the ex pected location of the mid to distal SFA. CONCLUSION: Left hip fracture. Femoral diaphysis is intact. Jeferson James MD on June 11, 2016 at 23:43 Board Certified Radiologist. This report was verified electronically.
[2016-06-12] VITALS (12 sets, daily range): BP systolic 107–150; BP diastolic 58–79; PULSE 71–99; RESP 16–18; TEMP 96.2–99; O2SAT 93–98
[2016-06-12] MEDS ORDERED: NALOXONE HCL 0.4 MG/ML AMP IV PRN (00:15)
[2016-06-12] MEDS ORDERED: SODIUM CHLORIDE 0.9% FLUSH 5 ML FLUSH FLUSH PRN (00:15)
[2016-06-12] MEDS: HYDROmorphone HCL PF 1 MG/ML VIAL IV PUSH PRN ×2 (02:09→05:12)
--- NOTE | 2016-06-12 02:15 | HHI.HP ---
HPI Service [facility] Primary Care Physician Kell Quintanilla MD Admission Diagnosis fall/left hip fracture/left wrist fracture Diagnoses: Chief Complaint: fell down Travel History International Travel<30 Days: No Contact w/Intl Traveler <30 Da: No Traveled to Known Affected Are: No History of Present Illness History from patient, ER physician communication, and review of medical records. Patient reported that she was trying to put her socks on while standing and as she do so, and she lost her balance and her right foot got stuck and she actually fall onto her left leg. She denies any loss of consciousness. denies hitting her head. Patient is on Coumadin for atrial fibrillation. Her INR is 1.9 today. Patient denies any premonitory symptoms prior to the fall such as chest pain/ palpitations/shortness of breath/focal weakness. She affirms that this is simply a trip and fall. Apart from the above, patient denies any recent fever/nausea/vomiting/diarrhea/ urinary burning or pain on urination. Denies any hematemesis/hematochezia/melena/hematuria. At the time of my exam, patient was having severe spasms and pain from her left lower extremity hip fracture. 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 Etiology of it was unknown. She did have exploratory laparotomy for this. Hypothyroidism History of breast cancer in 1992 Polymyalgia rheumatica Past Surgical History Bilateral cataract surgery Right mastectomy Expiratory laparotomy in 1987. Hernia repair. Partial colon resection. Hysterectomy. Reported Medications getting that from the patient's medications listed in EMRreviewed. Patient seen stated that somebody did go through the med list with her. Allergies: Coded Allergies: Codeine (Verified Allergy, Severe, UNK, 06/11/16) Penicillin (Verified Allergy, Severe, Unknown, 06/11/16) Sulfa (Verified Allergy, Severe, HYPOTENSION, 06/11/16) Shellfish (Unverified Allergy, Intermediate, NAUSEA VOMITING, 06/11/16) Uncoded Allergies: BANANAS (Allergy, Severe, VOMITTING, 10/30/15) Family History Reports that her mom had some heart issues. However she lives to be in her 80s and 90s. Social History Denies smoking/alcohol abuse/drug abuse. Physical Exam Vital Signs Vital Signs Date Time Temp Pulse Resp B/P Pulse Ox O2 Delivery O2 Flow Rate FiO2 06/12/16 01:53 71 16 150/79 98 Room Air 06/11/16 22:22 16 06/11/16 22:17 Room Air 06/11/16 22:15 98.5 74 16 140/72 98 Physical Exam GENERAL: This is a well-nourished, well-developed patient, in no apparent distress. SKIN: No rashes, ecchymoses or lesions. Cool and dry. HEAD: Atraumatic. Normocephalic. EYES: No scleral icterus. No injection or drainage. ENT: Nose without bleeding, purulent drainage or septal hematoma.Airway patent. NECK: Trachea midline. No JVD CARDIOVASCULAR: Regular rate and rhythm without murmurs, gallops, or rubs. RESPIRATORY: Clear to auscultation. Breath sounds equal bilaterally. No wheezes , rales, or rhonchi. GASTROINTESTINAL: Abdomen soft, non-tender, nondistended. . No guarding. MUSCULOSKELETAL: Extremities without clubbing, cyanosis, or edema. No calf tenderness. Left lower extremity slightly shorter than the right. NEUROLOGICAL: Awake and alert. Motor and sensory grossly within normal limits. Normal speech. Laboratory Laboratory Tests Test 06/11/16 22:30 White Blood Count 5.6 Red Blood Count 3.85 Hemoglobin 12.2 Hematocrit 35.7 Mean Corpuscular Volume 92.8 Mean Corpuscular Hemoglobin 31.5 Mean Corpuscular Hemoglobin 34.0 Concent Red Cell Distribution Width 16.3 Platelet Count 174 Mean Platelet Volume 8.5 Neutrophils (%) (Auto) 66.5 Lymphocytes (%) (Auto) 17.7 Monocytes (%) (Auto) 13.0 Eosinophils (%) (Auto) 2.1 Basophils (%) (Auto) 0.7 Neutrophils # (Auto) 3.7 Lymphocytes # (Auto) 1.0 Monocytes # (Auto) 0.7 Eosinophils # (Auto) 0.1 Basophils # (Auto) 0.0 CBC Comment DIFF FINAL Differential Comment Prothrombin Time 21.4 Prothromb Time International 1.9 Ratio Activated Partial 31.3 Thromboplast Time Sodium Level 141 Potassium Level 3.9 Chloride Level 105 Carbon Dioxide Level 25.4 Anion Gap 11 Blood Urea Nitrogen 39 Creatinine 1.39 Estimat Glomerular Filtration 36 Rate Random Glucose 103 Calcium Level 8.9 Total Bilirubin 0.5 Aspartate Amino Transf 24 (AST/SGOT) Alanine Aminotransferase 22 (ALT/SGPT) Alkaline Phosphatase 72 Total Protein 6.8 Albumin 3.4 Blood Type A NEGATIVE Blood Bank Comment Result Diagram: 06/11/16222906/11/162229 Imaging Last 48 hours Impressions Femur X-Ray 06/11/162248 Signed Impressions: Service Date/Time: Saturday, June 11, 2016 22:57 - CONCLUSION: Left hip fracture. Femoral diaphysis is intact. Jeferson James MD Wrist X-Ray 06/11/162219 Signed Impressions: Service Date/Time: Saturday, June 11, 2016 22:41 - CONCLUSION: 1. Minimally displaced, horizontal fracture through the distal radial metaphysis with probable intra-articular extension. 2. 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 Jeferson James MD Hip and Pelvis X-Ray 06/11/162219 Signed Impressions: Service Date/Time: Saturday, June 11, 2016 22:45 - CONCLUSION: Definite fracture deformity of the left hip which I believe is intratrochanteric.. Jeferson James MD Chest X-Ray 06/11/162219 Signed Impressions: Service Date/Time: Saturday, June 11, 2016 22:47 - CONCLUSION: 1. Prominent heart. 2. Interstitial prominence in both hemithoraces actually appears somewhat chronic and may represent some degree of fibrosis. There also appears to be bilateral calcific pleural plaquing. 3. No confluent infiltrate Jeferson James MD Assessment and Plan Assessment and Plan Impression: Status post fall Left hip fracture Minimally displaced, horizontal fracture through the distal radial metaphysis with probable intra-articular extension. 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 Etiology of it was unknown. She did have exploratory laparotomy for this. Hypothyroidism History of breast cancer in 1992 Polymyalgia rheumatica Hypothyroidism Plan: Nothing by mouth. Orthopedics consult. Hold long-acting insulin and oral hypoglycemics. Measure blood glucose closely tonight. No sliding scale coverage while nothing by mouth. Hold Coumadin. Check INR. Transfuse 2 units of PRBC tonight. We'll hold additional 2 units to give perioperatively We'll follow up INR levels.. DVT prophylaxisto start on Coumadin postoperatively with Lovenox overlap. GI prophylaxison pantoprazole. Discussed Condition With Patient, ER physician, ER nurse Physician Certification 2 Midnight Certification Type: Admission for Inpatient Services Order for Inpatient Services The services are ordered in accordance with Medicare regulations or non- Medicare payer requirements, as applicable. In the case of services not specified as inpatient-only, they are appropriately provided as inpatient services in accordance with the 2-midnight benchmark. Estimated LOS (days): 3 days is the estimated time the patient will need to remain in the hospital, assuming treatment plan goals are met and no additional complications. Post-Hospital Plan: Not yet determined Adelaide Eddy MD Jun 12, 2016 02:15
[2016-06-12 02:41] LABS: BLOOD, URINE NEG (NEG); GLUCOSE,URINE NEG (NEG); HYALINE CAST, URINE 1 /lpf (RARE); KETONE, URINE NEG (NEG); NITRITE,URINE NEG (NEG); PH, URINE 5.5 (5.0-8.5); SQUAMOUS EPITHELIAL CELL URINE <1 /hpf (0-5); URINE COLOR LIGHT-YELLOW (YELLW/STRAW)
[2016-06-12 02:44] LABS: COMMENT (UR) CATH-CULT NOT IND; CULTURE IF INDICATED CATH CULTURE NOT IND
[2016-06-12] MEDS: LEVOTHYROXINE SODIUM 50 MCG TAB PO SCH (05:50)
[2016-06-12] MEDS ORDERED: SODIUM CHLOR 0.9% 250 ML INJ 250 ML IV ONE ×2 (06:45→07:52)
--- NOTE | 2016-06-12 07:08 | PD.ORT.PN ---
Subjective Subjective Remarks s/p fall at home. left wrist and left hip pain Objective Vitals Vital Signs Date Time Temp Pulse Resp B/P Pulse Ox O2 Delivery O2 Flow Rate FiO2 06/12/16 06:45 98.1 78 16 124/68 96 Nasal Cannula 2 06/12/16 05:20 97.9 83 16 132/63 96 Nasal Cannula 2 06/12/16 05:00 99.0 82 16 127/65 96 Room Air 06/12/16 04:30 71 16 127/65 95 Room Air 06/12/16 03:50 97.4 78 18 117/69 95 Room Air 06/12/16 03:35 97.9 84 16 134/73 95 Room Air 06/12/16 01:53 71 16 150/79 98 Room Air 06/11/16 22:22 16 06/11/16 22:17 Room Air 06/11/16 22:15 98.5 74 16 140/72 98 I/O 06/11/16 06/11/16 06/11/16 06/12/16 06/12/16 06/12/16 07:00 15:00 23:00 07:00 15:00 23:00 Intake Total 500 ml Balance 500 ml Intake FFP 500 ml Result Diagram: 06/11/16222906/11/162229 Other Results Laboratory Tests Test 06/11/16 22:30 Prothrombin Time 21.4 SEC (9.8-11.6) Prothromb Time International 1.9 RATIO Ratio Imaging Last 24 hours Impressions Femur X-Ray 06/11/162248 Signed Impressions: Service Date/Time: Saturday, June 11, 2016 22:57 - CONCLUSION: Left hip fracture. Femoral diaphysis is intact. Jeferson James MD Wrist X-Ray 06/11/162219 Signed Impressions: Service Date/Time: Saturday, June 11, 2016 22:41 - CONCLUSION: 1. Minimally displaced, horizontal fracture through the distal radial metaphysis with probable intra-articular extension. 2. 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 Jeferson James MD Hip and Pelvis X-Ray 06/11/162219 Signed Impressions: Service Date/Time: Saturday, June 11, 2016 22:45 - CONCLUSION: Definite fracture deformity of the left hip which I believe is intratrochanteric.. Jeferson James MD Chest X-Ray 06/11/16 3340 Signed Impressions: Service Date/Time: Saturday, June 11, 2016 22:47 - CONCLUSION: 1. Prominent heart. 2. Interstitial prominence in both hemithoraces actually appears somewhat chronic and may represent some degree of fibrosis. There also appears to be bilateral calcific pleural plaquing. 3. No confluent infiltrate Jeferson James MD Objective Remarks LLE: pain in hip with motion LUE: pain in wrist with motion Assessment & Plan Assessment and Plan 1) Left Subtroch hip fx -consents -surgery today 2) Left WRist fx -nonop -NWB -orthotech to splint Edgar Kenney Jun 12, 2016 07:08
[2016-06-12] MEDS ORDERED: PROPOFOL 200 MG/20 ML AMP IV ONE (07:51)
[2016-06-12] MEDS ORDERED: ePHEDrine/NS 25 MG/5 ML SYR IV ONE (07:51)
[2016-06-12] MEDS ORDERED: ONDANSETRON HCL 4 MG/2 ML VIAL IV PUSH ONE (07:52)
--- NOTE | 2016-06-12 08:03 | MB ---
cc: HIMA ASHRAF DATE OF CONSULTATION: 06/12/2016 REASON FOR CONSULTATION Left hip intertrochanteric fracture. HISTORY OF PRESENT ILLNESS Shawna is an 89-year-old female who was trying to take her socks off. She got her sock stuck on her right foot causing her to lose her balance. She fell. She landed on her left side. She had immediate left hip pain. She was unable to stand or ambulate. She is on Coumadin for atrial fibrillation. She presented to the emergency room where x-rays revealed a left hip intertrochanteric fracture. She is currently awake and alert in the emergency department. She complains of left hip pain. Pain is worse with movement and is improved with rest. She was found to have an elevated INR of 1.9. She is receiving fresh frozen plasma currently. She denies any dizziness, syncope or loss of consciousness. PAST MEDICAL HISTORY ILLNESSES 1. Hypertension. 2. Atrial fibrillation. 3. Mitral prolapse. 4. CHF. 5. Renal failure. 6. Hypothyroidism. 7. Polymyalgia rheumatica. SURGERIES 1. Bilateral cataract surgery. 2. Right mastectomy. 3. Exploratory laparotomy. 4. Hernia repair. 5. Colon resection. 6. Hysterectomy. ALLERGIES 1. CODEINE. 2. PENICILLIN. 3. SHELLFISH. FAMILY HISTORY States that her mother had some cardiac issues but lived into her mid 80s. SOCIAL HISTORY The patient denies alcohol, tobacco or drug use. She normally ambulates with a rolling walker. REVIEW OF SYSTEMS The patient denies headache, visual changes, neck pain, chest pain, shortness of breath, abdominal pain, bowel or bladder incontinence, recent weight loss or numbness or tingling of extremities. She complains of left hip pain. PHYSICAL EXAMINATION GENERAL: The patient is a thin 89-year-old female who is awake and alert. She is alert and oriented x3. VITAL SIGNS: Temperature 98.1, pulse 78, respirations 16, blood pressure 124/68. O2 sat is 96% on two liters nasal cannula. HEAD: The patient is normocephalic. Pupils are equal. NECK: Soft, nontender. Trachea is midline. ABDOMEN: Soft, nontender, nondistended. EXTREMITIES: Examination of left upper extremity reveals no tenderness around her shoulder or elbow. She has mild tenderness and swelling around the left wrist. Skin is intact. Radial pulse is palpable. Sensation is intact in all fingers. Examination of the right arm reveals no pain with shoulder, elbow or wrist motion. Skin is intact. Radial pulse is palpable. Sensation is intact. Examination of right lower extremity reveals no pain with hip, knee or ankle motion. Skin is intact. Dorsalis pedis pulse is palpable. Sensation is intact in the right foot. Examination of left leg reveals pain with any hip motion. She has minimal tenderness around her knee, tibia and ankle. Skin is intact. Dorsalis pedis pulse is palpable. Sensation is intact. X-RAYS X-rays of the left hip were reviewed. X-rays reveal a displaced left hip peritrochanteric fracture. X-rays of the left wrist were reviewed. X-rays reveal a minimally displaced left distal radius fracture. IMPRESSION 1. Minimally displaced left distal radius fracture. 2. Displaced left proximal femur fracture. 3. Atrial fibrillation 4. Hypertension. PLAN The treatment options were discussed with the patient. At this point I would recommend nonsurgical treatment of her left wrist. The fracture is well-aligned. She will go into a well-padded splint then into a cast. I would recommend surgical intervention for her left hip. I would recommend reduction and intramedullary nail fixation. Risks of surgery include bleeding, infection, injuries to arteries, nerves and blood vessels, nonunion, malunion, avascular necrosis, painful hardware, as well as medical complications including blood clot, stroke, heart attack and . All questions were answered. I will tentatively plan on surgery today if she is medically cleared. A mid-level provider in my office, nurse practitioner or PA, may see this patient on a follow-up basis and continue to implement the objective of this plan including: Starting or adjusting medications, injections of muscle, tendon, bursa or joints, cast application, orthotic or brace application, physical therapy, further radiographic studies including x-ray, MRI, CT, ultrasounds or bone scan, vascular studies, neurologic studies, or other specialist consultations, and proceeding with surgical management as appropriate. MD LANIE Rodriguez/MANGO /7:29 AM 7:52 AM
[2016-06-12 08:28] LABS: AUTOMATED NEUTROPHIL # 5.5 TH/MM3 (1.8-7.7); BASOPHIL % 0.3 % (0.0-2.0); EOSINOPHIL # 0.1 TH/MM3 (0-0.4); HEMATOCRIT 29.9 % (35.0-46.0); HEMO FLAGS DIFF FINAL; LYMPH % 9.5 % (9.0-44.0); LYMPHOCYTE # 0.7 TH/MM3 (1.0-4.8); MEAN CELL VOLUME 93.5 FL (80.0-100.0); MEAN CORPUSCULAR HEMOGLOBIN 31.6 PG (27.0-34.0); MEAN CORPUSCULAR HGB CONC 33.8 % (32.0-36.0); MONO % 12.9 % (0.0-8.0); NEUT % 76.3 % (16.0-70.0); PLATELET COUNT 139 TH/MM3 (150-450); RED CELL DISTRIBUTION WIDTH 16.6 % (11.6-17.2); WHITE BLOOD COUNT 7.2 TH/MM3 (4.0-11.0)
[2016-06-12 08:33] LABS: INTERNATIONAL NORMALIZED RATIO 1.7 RATIO; PROTHROMBIN TIME - PATIENT 19.3 SEC (9.8-11.6)
[2016-06-12 08:43] LABS: BICARBONATE 25.6 MEQ/L (21.0-32.0); POTASSIUM 3.8 MEQ/L (3.5-5.1)
[2016-06-12] MEDS ORDERED: ONDANSETRON HCL 4 MG/2 ML VIAL ONE (08:47)
[2016-06-12] MEDS: SODIUM CHLORIDE 0.9% FLUSH 5 ML FLUSH FLUSH SCH ×2 (09:00→20:27)
[2016-06-12] MEDS: BUMETANIDE 1 MG TAB PO SCH (09:00)
[2016-06-12] MEDS: METOPROLOL SUCCINATE 25 MG EXTENDED RELEASE TAB PO SCH ×2 (09:00→20:55)
[2016-06-12] MEDS: TIOTROPIUM BROMIDE 18 MCG INH INH SCH (09:00)
[2016-06-12] MEDS: PANTOPRAZOLE SOD 40 MG DELAYED RELEASE TAB PO SCH (09:00)
[2016-06-12] MEDS: FAMOTIDINE 20 MG TAB PO SCH (09:00)
[2016-06-12] MEDS: predniSONE 1 MG TAB PO SCH (09:00)
[2016-06-12] MEDS: ONDANSETRON HCL 4 MG/2 ML VIAL IV PUSH PRN ×2 (09:55→14:58)
[2016-06-12] MEDS ORDERED: VANCOMYCIN HCL 1000 MG VIAL ONE (10:52)
[2016-06-12] MEDS ORDERED: CLINDAMYCIN PHOS 900 MG/6 ML VIAL ONE (10:52)
[2016-06-12] MEDS ORDERED: CLINDAMYCIN PHOS 600 MG/4 ML VIAL ONE (10:52)
[2016-06-12] MEDS ORDERED: GENTAMICIN SULFATE 80 MG/2 ML VIAL ONE (10:53)
[2016-06-12] MEDS ORDERED: VITA2000 PO (10:58)
[2016-06-12] MEDS ORDERED: ERGO1CAP30 PO (10:58)
[2016-06-12] MEDS ORDERED: NORC5TAB PO (10:58)
[2016-06-12] MEDS ORDERED: WHEEMIS3 (10:58)
[2016-06-12] MEDS ORDERED: CALCTAB19 PO (10:58)
[2016-06-12] MEDS ORDERED: BUPIVACAINE/EPINEPHRINE 0.5% PF 30 ML VIAL INFIL ONE (11:45)
--- NOTE | 2016-06-12 11:51 | PD.OP ---
cc: Abimael Pleitez MD Operative Report Date of Surgery: Jun 12, 2016 Preoperative Diagnosis: Left hip intertrochanteric fracture Postoperative Diagnosis: Procedure: Left hip reduction and intramedullary nail fixation Anesthesia: Gen. Surgeon: Abimael Pleitez Vibration Engineer(s): RAIN Acosta PA-C The surgical procedure was assisted by my physician virtual assistant for advertisers. My P.A. presence was necessary throughout this case for the manipulation and positioning of the surgical extremity. My P.A. was assisting me throughout the duration of this procedure. The skill set of a physician virtual assistant for advertisers was medically necessary to complete this procedure. During the surgical case the surgical device sales representative was working at the back table and the physician virtual assistant for advertisers was directly assisting me. Operation and Findings: Implants used: 11 mm 130 Synthes TFNA short troch nail Plan of activity: Weight-bear as tolerated Patient was seen and evaluated preoperatively. The patient has significant hip pain from intertrochanteric hip fracture. The risk and benefits of surgery were discussed in depth with the patient to include bleeding infection nonunion malunion and need for hip replacement painful hardware as well as medical competitions including but not stroke heart attack and . Informed consent was obtained. Operative site was marked. Patient was brought to the operating room and placed on fracture table. IV sedation was administered by anesthesiologist. Timeout procedure was performed. Hip and leg were prepped with alcohol followed by DuraPrep and draped in the usual sterile fashion. IV antibiotics were given prior to incision. Procedure began with reduction of fracture. Traction was applied. The leg was manipulated to achieve reduction. Excellent reduction was achieved. Fluoroscopy was used to confirm reduction. A three inch incision was made proximal to the trochanter. Subcutaneous tissue was dissected bluntly. Guidepin was placed at the tip of the trochanter and advanced into the femoral canal. Fluoroscopy confirmed appropriate guidepin placement. A opening reamer was placed over the guidepin. The Synthes TFNA nail was attached to the insertion handle. Nail was now placed through the tip of the trochanter into the femoral canal. Fluoroscopy confirmed appropriate nail placement. A second incision was made over the lateral thigh. Cannulas were placed through the insertion handle down to the femur. Guidepin was now placed through the femoral nail into the center of the femoral head. Fluoroscopy confirmed appropriate guidepin placement. Screw length was measured. Cannulated drill was placed over the guidepin. Appropriate length lag screw was now placed. Traction was released and compression was applied. The set screw was now tightened in dynamic mode. Using the insertion handle as a guide a distal interlocking screw was drilled and placed. Final fluoroscopy revealed well aligned fracture with well-placed hardware. Incision was closed with 3-0 Vicryl and rosalinda. Sterile dressings were applied. Patient was awakened and transferred to recovery room. Abimael Pleitez MD Jun 12, 2016 11:51
[2016-06-12] MEDS ORDERED: ENOXAPARIN SODIUM 30 MG/0.3 ML SYRINGE SQ SCH (12:00)
[2016-06-12] MEDS ORDERED: SODIUM CHLORIDE 0.9% FLUSH 5 ML FLUSH IVF PRN (12:00)
[2016-06-12] MEDS ORDERED: ERGOCALCIFEROL (VIT D2) 50,000 UNIT CAP PO ONE (12:00)
[2016-06-12] MEDS ORDERED: diphenhydrAMINE HCL 25 MG CAP PO PRN (12:00)
[2016-06-12] MEDS ORDERED: fentaNYL CITRATE 250 MCG/5 ML AMP ONE (12:20)
[2016-06-12] MEDS ORDERED: *HYDROmorphone PF 1 MG VIAL PERIprocedural Use ONLY ONE (12:42)
[2016-06-12] MEDS ORDERED: DO NOT ADM ANY ANTICOAGULANT DRUGS XX PRN (12:45)
[2016-06-12] MEDS: CALCIUM/VITAMIN D 250 MG/125 U TAB PO SCH ×2 (13:00→18:43)
[2016-06-12] MEDS: ACETAMINOPHEN/HYDROcodone 325 MG/7.5 MG TAB PO PRN ×2 (15:40→18:44)
--- NOTE | 2016-06-12 15:51 | RADRPT ---
EXAM DATE/TIME: 06/12/2016 11:48 [facility] COMPARISON: HIP LEFT (AP&LAT 2/3VWS) W AP PELVIS, June 11, 2016, 22:45. INDICATIONS : ORIF left hip troch nail. MEDICAL HISTORY : None. SURGICAL HISTORY : None. ENCOUNTER: Subsequent ACUITY: 2 days PAIN SCORE: Non-responsive. LOCATION: Left hip. FINDINGS: Interim nail and shalonda fixation of the comminuted left intertrochanteric fracture. Main fracture fragme nts are normally aligned. There slight medial displacement of the lesser trochanter. No new fracture or other acute complication demonstrated. CONCLUSION: Interim left intertrochanteric fracture nail and shalonda fixation with main fracture fragments in near-an atomic alignment. No acute abnormality seen. Asher Marcus MD on June 12, 2016 at 15:48 Board Certified Radiologist. This report was verified electronically.
--- NOTE | 2016-06-12 18:36 | EKG ---
Date Performed: 06/11/2016 Time Performed: 22:23:04 PTAGE: 89 years EKG: ATRIAL FIBRILLATION WITH ABERRANT CONDUCTION OR VENTRICULAR PREMATURE COMPLEXES MARKED LEFT AXIS DEVIATION ANTEROSEPTAL MYOCARDIAL INFARCTION ABNORMAL ECG INTERPRETATION BASED ON A DEFAULT AGE OF 40 YEARS PREVIOUS TRACING : 04/08/2016 15.35 DOCTOR: Andrei Clifford Interpretating Date/Time 06/12/2016 18:34:15
[2016-06-12] MEDS: SODIUM CHLORIDE 0.9% FLUSH 5 ML FLUSH IVF SCH (20:55)
[2016-06-13] VITALS (12 sets, daily range): BP systolic 84–125; BP diastolic 44–64; PULSE 77–122; RESP 16–19; TEMP 96.4–99; O2SAT 95–99
[2016-06-13] MEDS ORDERED: SODIUM CHLORID 0.9% 500 ML INJ 500 ML IV ONE (03:30)
[2016-06-13] MEDS: LEVOTHYROXINE SODIUM 50 MCG TAB PO SCH (03:56)
[2016-06-13 04:29] LABS: HEMATOCRIT 25.2 % (35.0-46.0); REVIEW FLAG FINAL
[2016-06-13 05:10] LABS: ALKALINE PHOSPHATASE 56 U/L (45-117); ALT (GPT) 18 U/L (10-53); ANION GAP 9 MEQ/L (5-15); AST (GOT) 17 U/L (15-37); BICARBONATE 26.7 MEQ/L (21.0-32.0); BLOOD UREA NITROGEN 25 MG/DL (7-18); CHLORIDE 107 MEQ/L (98-107); GLOMERULAR FILTRATION RATE 40 ML/MIN (>89); MAGNESIUM 1.8 MG/DL (1.5-2.5); POTASSIUM 3.9 MEQ/L (3.5-5.1); SODIUM (NA) 143 MEQ/L (136-145); TOTAL BILIRUBIN ADULT 0.9 MG/DL (0.2-1.0)
--- NOTE | 2016-06-13 08:46 | HHI.PR ---
Subjective Remarks 89 years old female, left handed, independent prior to this admission pain controlled, goo po 100% no nausea or vomiting very motivated with physical therapy Objective Vitals Vital Signs Date Time Temp Pulse Resp B/P Pulse Ox O2 Delivery O2 Flow Rate FiO2 06/13/16 08:00 97.0 89 19 103/44 97 06/13/16 04:37 77 102/54 06/13/16 03:00 97.4 88 18 84/53 95 06/13/16 02:54 122 06/13/16 00:15 97.3 95 17 97/60 96 06/12/16 20:20 96.2 99 18 107/58 97 06/12/16 19:44 18 06/12/16 19:25 90 06/12/16 17:57 93 Nasal Cannula 4.00 06/12/16 16:00 97.8 88 14 109/54 95 Nasal Cannula 3 06/12/16 16:00 97.0 98 16 118/70 98 06/12/16 15:00 95 16 134/73 98 Nasal Cannula 3 06/12/16 14:00 92 17 130/77 95 Nasal Cannula 3 06/12/16 13:00 88 12 129/74 95 Nasal Cannula 3 06/12/16 12:45 90 12 128/76 95 Nasal Cannula 3 06/12/16 12:30 90 12 131/86 97 Nasal Cannula 3 06/12/16 12:15 97.8 113 12 139/71 94 Nasal Cannula 3 I/O 06/12/16 06/12/16 06/12/16 06/13/16 06/13/16 06/13/16 07:00 15:00 23:00 07:00 15:00 23:00 Intake Total 500 ml 500 ml 680 ml 500 ml Output Total 300 ml 750 ml 200 ml Balance 500 ml 200 ml -70 ml 300 ml Intake Oral 480 ml IV Total 200 ml 500 ml FFP 500 ml Other 500 ml Output Urine Total 100 ml 750 ml 200 ml Estimated Blood Loss 200 ml # Bowel Movements 0 Result Diagram: 06/13/16 0418 06/13/16 0418 Imaging Last Impressions Hip X-Ray 06/12/16 0000 Signed Impressions: Service Date/Time: Sunday, June 12, 2016 11:48 - CONCLUSION: Interim left intertrochanteric fracture nail and shalonda fixation with main fracture fragments in near-anatomic alignment. No acute abnormality seen. Asher Marcus MD Femur X-Ray 06/11/162248 Signed Impressions: Service Date/Time: Saturday, June 11, 2016 22:57 - CONCLUSION: Left hip fracture. Femoral diaphysis is intact. Jeferson James MD Wrist X-Ray 06/11/162219 Signed Impressions: Service Date/Time: Saturday, June 11, 2016 22:41 - CONCLUSION: 1. Minimally displaced, horizontal fracture through the distal radial metaphysis with probable intra-articular extension. 2. 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 Jeferson James MD Hip and Pelvis X-Ray 06/11/162219 Signed Impressions: Service Date/Time: Saturday, June 11, 2016 22:45 - CONCLUSION: Definite fracture deformity of the left hip which I believe is intratrochanteric.. Jeferson James MD Chest X-Ray 06/11/162219 Signed Impressions: Service Date/Time: Saturday, June 11, 2016 22:47 - CONCLUSION: 1. Prominent heart. 2. Interstitial prominence in both hemithoraces actually appears somewhat chronic and may represent some degree of fibrosis. There also appears to be bilateral calcific pleural plaquing. 3. No confluent infiltrate Jeferson James MD Objective Remarks awake and alert, NAD anicteric lungs clear irregularly irregular rhythm- rate 82 abdomen soft, nontender fernandez in place LUE- splint/elastic dressing in place LLE- hip with post dressing in place good peripheral pulses Procedures 06/12- Left hip reduction and IMN fixation Urinary Catheter: Yes Assessment to: Continue Fernandez insert reason: Surgical/Invasive Proced Date of Insertion: Jun 12, 2016 A/P Assessment and Plan 89 years female S/P fall Status post left hip reduction and IMN fixation of left hip 06/12 Minimally displaced, horizontal fracture through the distal radial metaphysis with probable intra-articular extension. - non operative management, splint Orthopedics ff. PT History of HTN, Afib rate controlled History of MV prolapse History of CHF- in remission continue on BB anticoagulation on Coumadin- as OP was on 3 mg- MWF. 6 mg T/THSat/Sun- total of 36 mg /week will start coumadin overlap- 5 mg daily Post op anemia- slight drop in SBP will give 1 unit RBC. 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 creatinine is near baseline Hypothyroidism. On Synthroid Polymyalgia rheumatica on chronic Prednisone- continued Hypothyroidism DVT prophylaxis Lovenox overlap with coumadin GI prophylaxison pantoprazole. Case management consult- Monroe Mars MD Jun 13, 2016 08:46
[2016-06-13] MEDS: TIOTROPIUM BROMIDE 18 MCG INH INH SCH (09:00)
[2016-06-13] MEDS: SODIUM CHLORIDE 0.9% FLUSH 5 ML FLUSH FLUSH SCH ×2 (09:00→21:08)
[2016-06-13] MEDS: METOPROLOL SUCCINATE 25 MG EXTENDED RELEASE TAB PO SCH ×2 (09:00→21:08)
[2016-06-13] MEDS: CALCIUM/VITAMIN D 250 MG/125 U TAB PO SCH ×3 (10:03→18:16)
[2016-06-13] MEDS: FAMOTIDINE 20 MG TAB PO SCH (10:03)
[2016-06-13] MEDS: PANTOPRAZOLE SOD 40 MG DELAYED RELEASE TAB PO SCH (10:03)
[2016-06-13] MEDS: ENOXAPARIN SODIUM 30 MG/0.3 ML SYRINGE SQ SCH (10:03)
[2016-06-13] MEDS: CHOLECALCIFEROL (VIT D3) 5000 UNIT CAP PO SCH (10:04)
[2016-06-13] MEDS: predniSONE 1 MG TAB PO SCH (10:04)
[2016-06-13] MEDS: BUMETANIDE 1 MG TAB PO SCH (10:04)
[2016-06-13] MEDS: SODIUM CHLORIDE 0.9% FLUSH 5 ML FLUSH IVF SCH ×2 (10:05→21:00)
[2016-06-13] MEDS: ACETAMINOPHEN/HYDROcodone 325 MG/7.5 MG TAB PO PRN (10:11)
--- NOTE | 2016-06-13 10:22 | PD.ORT.PN ---
Subjective Subjective Remarks Resting comfortably with no new complaints Objective Vitals Vital Signs Date Time Temp Pulse Resp B/P Pulse Ox O2 Delivery O2 Flow Rate FiO2 06/13/16 08:00 97.0 89 19 103/44 97 06/13/16 04:37 77 102/54 06/13/16 03:00 97.4 88 18 84/53 95 06/13/16 02:54 122 06/13/16 00:15 97.3 95 17 97/60 96 06/12/16 20:20 96.2 99 18 107/58 97 06/12/16 19:44 18 06/12/16 19:25 90 06/12/16 17:57 93 Nasal Cannula 4.00 06/12/16 16:00 97.8 88 14 109/54 95 Nasal Cannula 3 06/12/16 16:00 97.0 98 16 118/70 98 06/12/16 15:00 95 16 134/73 98 Nasal Cannula 3 06/12/16 14:00 92 17 130/77 95 Nasal Cannula 3 06/12/16 13:00 88 12 129/74 95 Nasal Cannula 3 06/12/16 12:45 90 12 128/76 95 Nasal Cannula 3 06/12/16 12:30 90 12 131/86 97 Nasal Cannula 3 06/12/16 12:15 97.8 113 12 139/71 94 Nasal Cannula 3 I/O 06/12/16 06/12/16 06/12/16 06/13/16 06/13/16 06/13/16 07:00 15:00 23:00 07:00 15:00 23:00 Intake Total 500 ml 500 ml 680 ml 500 ml Output Total 300 ml 750 ml 200 ml Balance 500 ml 200 ml -70 ml 300 ml Intake Oral 480 ml IV Total 200 ml 500 ml FFP 500 ml Other 500 ml Output Urine Total 100 ml 750 ml 200 ml Estimated Blood Loss 200 ml # Bowel Movements 0 Result Diagram: 06/13/168 06/13/16417 Imaging Last 24 hours Impressions Femur X-Ray 06/11/162248 Signed Impressions: Service Date/Time: Saturday, June 11, 2016 22:57 - CONCLUSION: Left hip fracture. Femoral diaphysis is intact. Jeferson James MD Wrist X-Ray 06/11/162219 Signed Impressions: Service Date/Time: Saturday, June 11, 2016 22:41 - CONCLUSION: 1. Minimally displaced, horizontal fracture through the distal radial metaphysis with probable intra-articular extension. 2. 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 Jeferson James MD Hip and Pelvis X-Ray 06/11/162219 Signed Impressions: Service Date/Time: Saturday, June 11, 2016 22:45 - CONCLUSION: Definite fracture deformity of the left hip which I believe is intratrochanteric.. Jeferson James MD Chest X-Ray 06/11/162219 Signed Impressions: Service Date/Time: Saturday, June 11, 2016 22:47 - CONCLUSION: 1. Prominent heart. 2. Interstitial prominence in both hemithoraces actually appears somewhat chronic and may represent some degree of fibrosis. There also appears to be bilateral calcific pleural plaquing. 3. No confluent infiltrate Jeferson James MD Objective Remarks Left lower extremity: Clean dry dressings intact. Mild tenderness with range of motion of the hip. Distally intact sensation with good capillary refills. Strong dorsiflexion and plantar flexion of foot. Left upper extremity: Volar splint in place. She has intact sensation of the radial ulnar median nerve distributions with good capillary refills. She is able to nearly extend her fingers and make a fist Assessment & Plan Assessment and Plan 1) left intertrochanteric femur fracture status post intramedullary nail fixation POD 1 PT weightbearing as tolerated Platform walker Daily dressing changes beginning POD 2 2) Left distal radius fracture nonoperative treatment Maintain splint Nonweightbearing left wrist may use platform walker Discharge planning to SNF Incentive spirometry Follow-up appointment with Dr. Pleitez or MARISSA in 2 weeks JACOB BENJAMIN PA-C Jun 13, 2016 10:22
[2016-06-13] MEDS ORDERED: WARFARIN SOD 5 MG TAB PO SCH (16:00)
[2016-06-13] MEDS: ONDANSETRON HCL 4 MG/2 ML VIAL IV PUSH PRN (19:30)
[2016-06-14] VITALS: BP 122/62; PULSE 91; RESP 16; TEMP 98.9; O2SAT 97
[2016-06-14 04:00] VITALS: BP 107/59; PULSE 91; RESP 16; TEMP 98.8; O2SAT 95
[2016-06-14] MEDS: LEVOTHYROXINE SODIUM 50 MCG TAB PO SCH (06:22)
[2016-06-14] MEDS ORDERED: POLYETHYLENE GLYCOL 17 GM PKG PO ONE (07:45)
[2016-06-14] MEDS ORDERED: BISACODYL EC 5 MG TABEC PO ONE (07:45)
[2016-06-14 08:00] VITALS: BP 110/65; PULSE 87; RESP 17; TEMP 97.4; O2SAT 96
[2016-06-14] MEDS: CHOLECALCIFEROL (VIT D3) 5000 UNIT CAP PO SCH (09:00)
[2016-06-14] MEDS: TIOTROPIUM BROMIDE 18 MCG INH INH SCH (09:00)
[2016-06-14] MEDS ORDERED: DOCUSATE SODIUM 50 MG/SENNA 8.6 MG TAB PO SCH (09:00)
[2016-06-14] MEDS ORDERED: MAGNESIUM HYDROXIDE SUSP 30 ML CUP PO SCH (09:00)
[2016-06-14] MEDS: SODIUM CHLORIDE 0.9% FLUSH 5 ML FLUSH IVF SCH (09:00)
[2016-06-14] MEDS: SODIUM CHLORIDE 0.9% FLUSH 5 ML FLUSH FLUSH SCH (09:11)
[2016-06-14] MEDS: METOPROLOL SUCCINATE 25 MG EXTENDED RELEASE TAB PO SCH (09:11)
[2016-06-14] MEDS: PANTOPRAZOLE SOD 40 MG DELAYED RELEASE TAB PO SCH (09:12)
[2016-06-14] MEDS: CALCIUM/VITAMIN D 250 MG/125 U TAB PO SCH ×2 (09:12→12:15)
[2016-06-14] MEDS: BUMETANIDE 1 MG TAB PO SCH (09:12)
[2016-06-14] MEDS: predniSONE 1 MG TAB PO SCH (09:12)
[2016-06-14] MEDS: FAMOTIDINE 20 MG TAB PO SCH (09:13)
[2016-06-14 09:30] VITALS: PULSE 84
[2016-06-14] MEDS ORDERED: PLATMIS3 (09:55)
[2016-06-14] MEDS ORDERED: WALKER/ADULT/FO1 MIS (09:55)
--- NOTE | 2016-06-14 09:57 | PD.ORT.PN ---
Subjective Subjective Remarks Resting comfortably with no new complaints Objective Vitals Vital Signs Date Time Temp Pulse Resp B/P Pulse Ox O2 Delivery O2 Flow Rate FiO2 06/14/16 09:30 84 06/14/16 08:00 97.4 87 17 110/65 96 06/14/16 06:40 Nasal Cannula 2.00 06/14/16 04:00 98.8 91 16 107/59 95 06/14/16 00:00 98.9 91 16 122/62 97 06/13/16 20:00 88 06/13/16 19:56 99.0 101 16 125/60 99 06/13/16 16:00 96.4 90 19 113/57 99 06/13/16 16:00 97.0 83 17 95/56 99 06/13/16 15:35 96.4 90 16 113/57 99 06/13/16 14:20 97 06/13/16 12:00 96.5 89 18 103/64 95 06/13/16 10:44 Nasal Cannula 3.00 I/O 06/13/16 06/13/16 06/13/16 06/14/16 06/14/16 06/14/16 07:00 15:00 23:00 07:00 15:00 23:00 Intake Total 500 ml 720 ml 480 ml 292 ml Output Total 200 ml 600 ml 700 ml Balance 300 ml 120 ml -220 ml 292 ml Intake Oral 720 ml 480 ml IV Total 500 ml 12 ml Packed Cells 280 ml Output Urine Total 200 ml 600 ml 700 ml Result Diagram: 06/13/16 0418 06/13/16 0418 Imaging Last 24 hours Impressions Femur X-Ray 06/11/162248 Signed Impressions: Service Date/Time: Saturday, June 11, 2016 22:57 - CONCLUSION: Left hip fracture. Femoral diaphysis is intact. Jeferson James MD Wrist X-Ray 06/11/162219 Signed Impressions: Service Date/Time: Saturday, June 11, 2016 22:41 - CONCLUSION: 1. Minimally displaced, horizontal fracture through the distal radial metaphysis with probable intra-articular extension. 2. 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 Jeferson James MD Hip and Pelvis X-Ray 06/11/162219 Signed Impressions: Service Date/Time: Saturday, June 11, 2016 22:45 - CONCLUSION: Definite fracture deformity of the left hip which I believe is intratrochanteric.. Jeferson James MD Chest X-Ray 06/11/162219 Signed Impressions: Service Date/Time: Saturday, June 11, 2016 22:47 - CONCLUSION: 1. Prominent heart. 2. Interstitial prominence in both hemithoraces actually appears somewhat chronic and may represent some degree of fibrosis. There also appears to be bilateral calcific pleural plaquing. 3. No confluent infiltrate Jeferson James MD Objective Remarks Left lower extremity: Clean dry dressings intact. Mild tenderness with range of motion of the hip. Distally intact sensation with good capillary refills. Strong dorsiflexion and plantar flexion of foot. Left upper extremity: Volar splint in place. She has intact sensation of the radial ulnar median nerve distributions with good capillary refills. She is able to nearly extend her fingers and make a fist Assessment & Plan Assessment and Plan 1) left intertrochanteric femur fracture status post intramedullary nail fixation POD 2 PT weightbearing as tolerated Platform walker Daily dressing changes 2) Left distal radius fracture nonoperative treatment Maintain splint Nonweightbearing left wrist may use platform walker ortho cleared for discharge Discharge planning to SNF Incentive spirometry Follow-up appointment with Dr. Pleitez or MARISSA in 2 weeks JACOB BENJAMIN PA-C Jun 14, 2016 09:57
[2016-06-14 10:12] LABS: HEMATOCRIT 30.8 % (35.0-46.0)
[2016-06-14 10:18] LABS: INTERNATIONAL NORMALIZED RATIO 2.1 RATIO; PROTHROMBIN TIME - PATIENT 23.7 SEC (9.8-11.6)
--- NOTE | 2016-06-14 10:54 | HHI.PR ---
Subjective Remarks no complains no N/V + flatus motivated with PT hoping to go to [facility] Objective Vitals Vital Signs Date Time Temp Pulse Resp B/P Pulse Ox O2 Delivery O2 Flow Rate FiO2 06/14/16 09:30 84 06/14/16 08:00 97.4 87 17 110/65 96 06/14/16 06:40 Nasal Cannula 2.00 06/14/16 04:00 98.8 91 16 107/59 95 06/14/16 00:00 98.9 91 16 122/62 97 06/13/16 20:00 88 06/13/16 19:56 99.0 101 16 125/60 99 06/13/16 16:00 96.4 90 19 113/57 99 06/13/16 16:00 97.0 83 17 95/56 99 06/13/16 15:35 96.4 90 16 113/57 99 06/13/16 14:20 97 06/13/16 12:00 96.5 89 18 103/64 95 I/O 06/13/16 06/13/16 06/13/16 06/14/16 06/14/16 06/14/16 07:00 15:00 23:00 07:00 15:00 23:00 Intake Total 500 ml 720 ml 480 ml 292 ml Output Total 200 ml 600 ml 700 ml Balance 300 ml 120 ml -220 ml 292 ml Intake Oral 720 ml 480 ml IV Total 500 ml 12 ml Packed Cells 280 ml Output Urine Total 200 ml 600 ml 700 ml Result Diagram: 06/14/16 0946 06/13/16 0418 Imaging Last Impressions Hip X-Ray 06/12/16 0000 Signed Impressions: Service Date/Time: Sunday, June 12, 2016 11:48 - CONCLUSION: Interim left intertrochanteric fracture nail and shalonda fixation with main fracture fragments in near-anatomic alignment. No acute abnormality seen. Asher Marcus MD Femur X-Ray 06/11/16 8729 Signed Impressions: Service Date/Time: Saturday, June 11, 2016 22:57 - CONCLUSION: Left hip fracture. Femoral diaphysis is intact. Jeferson James MD Wrist X-Ray 06/11/162219 Signed Impressions: Service Date/Time: Saturday, June 11, 2016 22:41 - CONCLUSION: 1. Minimally displaced, horizontal fracture through the distal radial metaphysis with probable intra-articular extension. 2. 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 Jeferson James MD Hip and Pelvis X-Ray 06/11/162219 Signed Impressions: Service Date/Time: Saturday, June 11, 2016 22:45 - CONCLUSION: Definite fracture deformity of the left hip which I believe is intratrochanteric.. Jeferson James MD Chest X-Ray 06/11/162219 Signed Impressions: Service Date/Time: Saturday, June 11, 2016 22:47 - CONCLUSION: 1. Prominent heart. 2. Interstitial prominence in both hemithoraces actually appears somewhat chronic and may represent some degree of fibrosis. There also appears to be bilateral calcific pleural plaquing. 3. No confluent infiltrate Jeferson James MD Objective Remarks awake and alert, NAD anicteric lungs clear irregularly irregular rhythm- rate 82 abdomen soft, nontender fernandez in place LUE- splint/elastic dressing in place LLE- hip with post dressing in place good peripheral pulses Procedures 06/12- Left hip reduction and IMN fixation Urinary Catheter: No Assessment to: Remove Date of Insertion: Jun 12, 2016 Date of Removal: Jun 14, 2016 A/P Assessment and Plan 89 years female S/P fall Status post left hip reduction and IMN fixation of left hip 06/12 Minimally displaced, horizontal fracture through the distal radial metaphysis with probable intra-articular extension. - non operative management, splint Orthopedics ff. PT History of HTN, Afib rate controlled History of MV prolapse History of CHF- in remission continue on BB anticoagulation on Coumadin- as OP was on 3 mg- MWF. 6 mg T/THSat/Sun- total of 36 mg /week INR 2.1 today. 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 creatinine is near baseline Hypothyroidism. On Synthroid Polymyalgia rheumatica on chronic Prednisone- continued Hypothyroidism DVT prophylaxis Lovenox overlap with coumadin GI prophylaxison pantoprazole. Case management consult- Monroe Mars MD Jun 14, 2016 10:54
--- NOTE | 2016-06-14 11:55 | HHI.DS ---
Discharge Summary Admission Date Jun 11, 2016 at 23:51 Discharge Date: Jun 14, 2016 Admitting Diagnosis fall/left hip fracture/left wrist fracture (1) Closed left hip fracture ICD Code: S72.002A Diagnosis: Principal Procedures 06/12- Left hip reduction and IMN fixation Brief History - From Admission History from patient, ER physician communication, and review of medical records. Patient reported that she was trying to put her socks on while standing and as she do so, and she lost her balance and her right foot got stuck and she actually fall onto her left leg. She denies any loss of consciousness. denies hitting her head. Patient is on Coumadin for atrial fibrillation. Her INR is 1.9 today. Patient denies any premonitory symptoms prior to the fall such as chest pain/ palpitations/shortness of breath/focal weakness. She affirms that this is simply a trip and fall. Apart from the above, patient denies any recent fever/nausea/vomiting/diarrhea/ urinary burning or pain on urination. Denies any hematemesis/hematochezia/melena/hematuria. At the time of my exam, patient was having severe spasms and pain from her left lower extremity hip fracture. CBC/BMP: 06/14/16 0946 06/13/16 0418 Significant Findings Laboratory Tests Test 06/11/16 06/12/16 06/13/16 06/14/16 22:30 08:07 04:18 09:46 Red Blood Count 3.85 MIL/MM3 3.20 MIL/MM3 (4.00-5.30) (4.00-5.30) Monocytes (%) (Auto) 13.0 % 12.9 % (0.0-8.0) (0.0-8.0) Prothrombin Time 21.4 SEC 19.3 SEC 23.7 SEC (9.8-11.6) (9.8-11.6) (9.8-11.6) Activated Partial 31.3 SEC Thromboplast Time (24.3-30.1) Blood Urea Nitrogen 39 MG/DL (7-18) 32 MG/DL (7-18) 25 MG/DL (7-18) Creatinine 1.39 MG/DL 1.18 MG/DL 1.27 MG/DL (0.50-1.00) (0.50-1.00) (0.50-1.00) Estimat Glomerular Filtration 36 ML/MIN (>89) 43 ML/MIN (>89) 40 ML/MIN (>89) Rate Hemoglobin 10.1 GM/DL 8.5 GM/DL 10.4 GM/DL (11.6-15.3) (11.6-15.3) (11.6-15.3) Hematocrit 29.9 % 25.2 % 30.8 % (35.0-46.0) (35.0-46.0) (35.0-46.0) Platelet Count 139 TH/MM3 (150-450) Neutrophils (%) (Auto) 76.3 % (16.0-70.0) Lymphocytes # (Auto) 0.7 TH/MM3 (1.0-4.8) Random Glucose 114 MG/DL (74-106) Calcium Level 8.3 MG/DL (8.5-10.1) Total Protein 5.5 GM/DL (6.4-8.2) Albumin 2.7 GM/DL (3.4-5.0) Imaging Last Impressions Hip X-Ray 06/12/16 0000 Signed Impressions: Service Date/Time: Sunday, June 12, 2016 11:48 - CONCLUSION: Interim left intertrochanteric fracture nail and shalonda fixation with main fracture fragments in near-anatomic alignment. No acute abnormality seen. Asher Marcus MD Femur X-Ray 06/11/162248 Signed Impressions: Service Date/Time: Saturday, June 11, 2016 22:57 - CONCLUSION: Left hip fracture. Femoral diaphysis is intact. Jeferson James MD Wrist X-Ray 06/11/162219 Signed Impressions: Service Date/Time: Saturday, June 11, 2016 22:41 - CONCLUSION: 1. Minimally displaced, horizontal fracture through the distal radial metaphysis with probable intra-articular extension. 2. 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 Jeferson James MD Hip and Pelvis X-Ray 06/11/162219 Signed Impressions: Service Date/Time: Saturday, June 11, 2016 22:45 - CONCLUSION: Definite fracture deformity of the left hip which I believe is intratrochanteric.. Jeferson James MD Chest X-Ray 06/11/162219 Signed Impressions: Service Date/Time: Saturday, June 11, 2016 22:47 - CONCLUSION: 1. Prominent heart. 2. Interstitial prominence in both hemithoraces actually appears somewhat chronic and may represent some degree of fibrosis. There also appears to be bilateral calcific pleural plaquing. 3. No confluent infiltrate Jeferson James MD PE at Discharge awake and alert, NAD anicteric lungs clear irregularly irregular rhythm- rate 82 abdomen soft, nontender fernandez in place LUE- splint/elastic dressing in place LLE- hip with post dressing in place good peripheral pulses Pt update on day of discharge very motivated with therapy- hoping to go to [facility] Course 89 years female S/P fall Status post left hip reduction and IMN fixation of left hip 06/12 Minimally displaced, horizontal fracture through the distal radial metaphysis with probable intra-articular extension. - non operative management, splint Orthopedics ff. PT History of HTN, Afib rate controlled History of MV prolapse History of CHF- in remission continue on BB anticoagulation on Coumadin- as OP was on 3 mg- MWF. 6 mg T/THSat/Sun- total of 36 mg /week INR 2.1 today. 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 creatinine is near baseline Hypothyroidism. On Synthroid Polymyalgia rheumatica on chronic Prednisone- continued Hypothyroidism DVT prophylaxis Lovenox overlap with coumadin GI prophylaxison pantoprazole. Case management consult- [facility] Pt Condition on Discharge: Stable Discharge Disposition: Rehab Inpatient Discharge Time: <= 30 minutes Discharge Instructions DIET: Follow Instructions for: As Tolerated, No Restrictions, Heart Healthy Diet Speech Therapy-Diet Recommends: Regular Activities you can perform: Weight Bearing as Willian Other Activity Instructions: per Rehab Follow up Referrals: Orthopedics - 06/26/[address] [facility] with Abimael Tucker MD New Medications: Calcium Carbonate-Vitamin D (Calcium 600+D 200) 600-200 Mg-Unit Tab 1 TAB PO BID Nutritional Supplement Days 30 Ref 0 TAB Cholecalciferol (Vitamin D3) 2,000 Unit Cap 2000 UNITS PO DAILY Nutritional Supplement #56 Ref 0 CAP Ergocalciferol (Ergocalciferol) 50,000 Unit Cap 56560 UNITS PO Q7D Nutritional Supplement #56 CAP Hydrocodone-Acetaminophen ([place]) 5-325 mg Tab 1 TAB PO Q4H PRN PAIN #60 Ref 0 TAB Platform Walker Attachmen (Platform Walker Attachmen) 1 Mis Mis 1 EA .ROUTE DIRECTED #1 EA Walker/Adult/Folding (Walker/Adult/Folding) 1 Mis Mis 1 EA .ROUTE DIRECTED #1 Ref 0 EA Wheelchair (Wheelchair) 1 Mis Mis 1 EA .ROUTE DIRECTED #1 Ref 0 EA Continued Medications: Bumetanide (Bumetanide) 0.5 Mg Tab 0.5 MG PO DAILY Ref 0 TAB Levothyroxine (Levothyroxine) 50 Mcg Tab 50 MCG PO DAILY Thyroid #30 Ref 0 TAB Metoprolol Succinate ER 24 HR (Metoprolol Succinate ER 24 HR) 25 Mg Tab 12.5 MG PO BID #30 Ref 0 TAB Prednisone (Prednisone) 1 Mg Tab 3 MG PO DAILY Ref 0 TAB Raloxifene (Raloxifene) 60 Mg Tab 60 MG PO DAILY Chemotherapy Management #30 Ref 0 TAB Ranitidine (Ranitidine) 150 Mg Tab 150 MG PO DAILY Heartburn Management #60 Ref 0 TAB Tiotropium Inh (Spiriva Handihaler) 18 Mcg Cap 18 MCG INH DAILY 1 capsule = 18 mcg COPD #30 Ref 0 CAP Warfarin (Coumadin) 6 Mg Tab 6 MG PO DAILY@1600 anticoagulation #30 TAB Warfarin (Warfarin) 3 Mg Tab 3 MG PO DAILY Blood Clot Prevention #30 Ref 0 TAB Monroe Calabrese MD Jun 14, 2016 11:55
[2016-06-14 12:00] VITALS: BP 116/63; PULSE 86; RESP 18; TEMP 98.8; O2SAT 98
[2016-06-14] MEDS: ACETAMINOPHEN/HYDROcodone 325 MG/7.5 MG TAB PO PRN (12:15)
[2016-06-14] MEDS: ENOXAPARIN SODIUM 30 MG/0.3 ML SYRINGE SQ SCH (12:15)
[2016-06-14] MEDS ORDERED: POLYETHYLENE GLYCOL 17 GM PKG PO SCH (21:00)
[2016-06-14] MEDS ORDERED: BISACODYL EC 5 MG TABEC PO SCH (21:00)
[2016-06-27] MEDS ORDERED: NORC5TAB PO (15:53)
[2016-06-27] MEDS ORDERED: COUM6TAB PO (15:53)
[2016-06-27] MEDS ORDERED: METO25TA6 PO (15:53)
[2016-06-27] MEDS ORDERED: SPIRCAP INH (15:53)
[2016-06-27] MEDS ORDERED: DOCU1CAP39 PO (15:53)
[2016-06-27] MEDS ORDERED: RALO1TAB PO (15:53)
[2016-06-27] MEDS ORDERED: CYCL1TAB29 PO (15:53)
[2016-06-27] MEDS ORDERED: ERGO1CAP30 PO (15:53)
[2016-06-27] MEDS ORDERED: BUME1TAB PO (15:53)
[2016-06-27] MEDS ORDERED: CALCTAB19 PO (15:53)
[2016-06-27] MEDS ORDERED: PRED1 PO (15:53)
[2016-06-27] MEDS ORDERED: VITA2000 PO (15:53)
[2016-06-27] MEDS ORDERED: LEVO50TA4 PO (15:53)
--- NOTE | 2016-07-14 12:46 | PQ ---
Physician Query Response Document PATIENT: JACKSON OCHOA : 1925 ADMIT DATE: 06/11/2016 11:51 PM DISCH DATE: 06/14/2016 2:07 PM RESPONDING PROVIDER #: Aleks QUERY TEXT: Anemia Type Post op Anemia is documented in the Medical Record. Please specify the cause (includes suspected or probable cause) Such as: -- Due to acute blood loss -- Due to chronic blood loss -- Due to iron deficiency -- Due to chronic disease -- Other, please specify The patient's Clinical Indicators include: 06/12/16 Admission Diagnosis fall/left hip fracture/left wrist fracture PER 06/13/16 PROGRESS NOTE - Post op anemia- slight drop in SBP will give 1 unit RBC. H and H in am CLINICAL INDICATORS: 06/11/16 H 06/12/16 H 06/13/16 H Query created by: Saloni Suh on 06/13/2016 10:53 AM RESPONSE TEXT: Post operative anemia secondary to acute postoperative blood loss Electronically signed by: Monroe Calabrese MD 07/14/2016 12:41 PM
== END 2016-06-14 14:07 | DRG 481 ==
LOC: NEPE 22:07 → NEDA 23:51 → NEDH 06-12 04:12 → N06B 06-12 17:01
PROVIDERS: ADMIT Internal Medicine; ATTEND Internal Medicine
PROC: 30233K1 Transfusion of Nonautologous Frozen Plasma into Peripheral Vein, Percutaneous Approach (ICD-10-PCS; 2016-06-12)
PROC: 0T9B70Z Drainage of Bladder with Drainage Device, Via Natural or Artificial Opening (ICD-10-PCS; 2016-06-12)
PROC: 0QS736Z Reposition Left Upper Femur with Intramedullary Internal Fixation Device, Percutaneous Approach (ICD-10-PCS; principal; 2016-06-12 11:07)
PROC: 30233N1 Transfusion of Nonautologous Red Blood Cells into Peripheral Vein, Percutaneous Approach (ICD-10-PCS; 2016-06-13)
DX: S72.142A Displaced intertrochanteric fracture of left femur, initial encounter for closed fracture (principal); S52.502A Unspecified fracture of the lower end of left radius, initial encounter for closed fracture; I50.9 Heart failure, unspecified; I48.91 Unspecified atrial fibrillation; I12.9 Hypertensive chronic kidney disease with stage 1 through stage 4 chronic kidney disease, or unspecified chronic kidney disease; D62 Acute posthemorrhagic anemia; Y92.009 Unspecified place in unspecified non-institutional (private) residence as the place of occurrence of the external cause; N18.9 Chronic kidney disease, unspecified; E03.9 Hypothyroidism, unspecified; M35.3 Polymyalgia rheumatica; Z79.01 Long term (current) use of anticoagulants; M19.90 Unspecified osteoarthritis, unspecified site; I25.2 Old myocardial infarction; J44.9 Chronic obstructive pulmonary disease, unspecified; K21.9 Gastro-esophageal reflux disease without esophagitis; Z87.442 Personal history of urinary calculi; Z88.5 Allergy status to narcotic agent; Z88.0 Allergy status to penicillin; Z91.013 Allergy to seafood; Z88.2 Allergy status to sulfonamides; Z91.018 Allergy to other foods; I34.1 Nonrheumatic mitral (valve) prolapse; Z85.3 Personal history of malignant neoplasm of breast; Z79.52 Long term (current) use of systemic steroids; W01.0XXA Fall on same level from slipping, tripping and stumbling without subsequent striking against object, initial encounter
CPT/HCPCS: 36430; 71010; 73110; 73502; 73552; 76000; 80048; 80053; 81001; 82306; 83735; 84100; 85014; 85018; 85025; 85610; 85730; 86850; 86900; 86901; 86920; 86927; 93005; 96374; 96375; C1713; J1170; J1580; J1650; J2405; J3010; J3370; J7040; J7050; J7512; P9016; P9017

== ENCOUNTER → 2017-03-27 | Outpatient (CLI) | payer MEDICARE ==
[~2017-03-27] MED LIST changes: +BUME1TAB PO; +CALCTAB19 PO; -COLA100C3 PO; +CYCL10TA PO; -DIFFCHW PO; +DOCU1CAP39 PO; -EVIS60TA PO; -IPRASOL NEB; -LACT10SO PO; +METO1TAB42 PO; -METO25TA3 PO; -MILKSUS PO; -MIRA33504 PO; +NORC5TAB PO; +PLATMIS3; +RALO1TAB PO; -VENTAER INH; +VITA2000 PO; +VITA500012 PO; +WALKER/ADULT/FO1 MIS; +WHEEMIS3
[2017-03-27 14:30] LABS: BASOPHIL % 0.7 % (0.0-2.0); EOSINOPHIL # 0.1 TH/MM3 (0-0.4); EOSINOPHIL % 1.5 % (0.0-4.0); HEMATOCRIT 36.8 % (35.0-46.0); HEMO FLAGS DIFF FINAL; LYMPH % 7.8 % (9.0-44.0); LYMPHOCYTE # 0.5 TH/MM3 (1.0-4.8); MEAN CELL VOLUME 96.5 FL (80.0-100.0); MEAN CORPUSCULAR HEMOGLOBIN 32.4 PG (27.0-34.0); MEAN CORPUSCULAR HGB CONC 33.6 % (32.0-36.0); MONO % 10.8 % (0.0-8.0); NEUT % 79.2 % (16.0-70.0); PLATELET COUNT 163 TH/MM3 (150-450); RED BLOOD COUNT 3.82 MIL/MM3 (4.00-5.30); WHITE BLOOD COUNT 6.4 TH/MM3 (4.0-11.0)
[2017-03-27 14:40] LABS: ANION GAP 7 MEQ/L (5-15); AST (GOT) 25 U/L (15-37); BICARBONATE 27.4 MEQ/L (21.0-32.0); BLOOD UREA NITROGEN 39 MG/DL (7-18); CHLORIDE 102 MEQ/L (98-107); GLOMERULAR FILTRATION RATE 29 ML/MIN (>89); GLUCOSE,FASTING 74 MG/DL (74-99); POTASSIUM 4.5 MEQ/L (3.5-5.1); SODIUM (NA) 136 MEQ/L (136-145)
[2017-03-27 14:41] LABS: ALT (GPT) 22 U/L (10-53)
[2017-03-27 14:52] LABS: ALKALINE PHOSPHATASE 78 U/L (45-117); TOTAL BILIRUBIN ADULT 0.7 MG/DL (0.2-1.0)
== END ==
LOC: PLAB 10:24
PROVIDERS: ATTEND Nurse Practitioner Family
DX: R06.09 Other forms of dyspnea (principal); E03.8 Other specified hypothyroidism; I12.9 Hypertensive chronic kidney disease with stage 1 through stage 4 chronic kidney disease, or unspecified chronic kidney disease; N18.3 Chronic kidney disease, stage 3 (moderate); I48.91 Unspecified atrial fibrillation; R53.1 Weakness; R60.0 Localized edema; Z79.01 Long term (current) use of anticoagulants
CPT/HCPCS: 36415; 80053; 83880; 83970; 84443; 85025